=== PATIENT | female | born 1945 | race Caucasian/White ===

== ENCOUNTER → 2016-06-28 | Outpatient (CLI) | payer MEDICARE, BC ==
[~2016-06-28] MED LIST: ABILIFY2 MG PO; ABILIFY5 MG PO; ACCUPRIL10 MG PO; ACCUPRIL40MGTAB PO; AMBIEN 5MG TABLE5 MG PO; ASPIRIN 81M81 MG/TA2 PO; ASPIRIN E.C. 8181 MG PO; ATIVAN 0.50.5 MG/TAB PO; ATIVAN 1MG T1 MG/TAB PO; ATIVAN1 MG PO; BUPROPION PO; CALCIUM 500 W/V1 TAB PO; CALTRATE 600600 MG PO; CEPHALEXIN500 M1 PO; CIPRO 250MG TA250 MG PO; CORDARONE200 MG/TAB PO; DOXYCYCLINE 10100 MG PO; FISH OIL1000 MG PO; FLONASE NASAL S16 GM NS; FLOVENT0.044 MG/A IH; FLUTICASON0.05 MG/Ac NS; FOLIC ACID0.4 MG PO; FOLIC ACID800 MCG PO; GLUCOPHAGE500 MG PO; GLUCOPHAGE500 MG/TAB PO; HCTZ 25MG TAB25 MG PO; HCTZ 25MG25 MG PO; IBUPROFEN600 MG PO; INDERAL 80 MG PO; MACROBID 1100 MG/CAP PO; MAREPA1200 MG PO; METFORMIN500 MG PO; MULTIPLE VITAMI1 CAP PO; NORCO 325 MG-51 TAB PO; OMEPRAZOLE D/R20 MG PO; PRAVACHOL 20MG20 MG PO; PRAVACHOL 40MG40 MG PO; PRILOSEC 20MG20 MG PO; PROVIGIL100 MG PO; PROZAC 10MG10 MG PO; PROZAC 20MG20 MG PO; PROZAC10 MG PO; PROZAC20 MG PO; ROXICODONE 55 MG/TAB PO; TAMBOCOR50 MG PO; TEMOVATE0.05% TP; ULTRAM 50MG TAB50 MG PO; VENTOLIN0.09 MG IH; VERAPAMIL ER240 MG PO; VERELAN PM100 MG PO; VERELAN240 MG PO; VITAMIN D 1001000 IU PO; VITAMIN D1000 IU PO; WELLBUTRIN 100100 MG PO; WELLBUTRIN SR100 M1 PO; XARELTO15 MG PO; ZOFRAN 4MG T4 MG/TAB PO; ZOFRAN ODT4 MG PO; ZOLPIDEM TART5 MG PO
== END ==
LOC: MC.RAD 14:00
DX: Z12.31 Encounter for screening mammogram for malignant neoplasm of breast (principal); N63 Unspecified lump in breast

== ENCOUNTER → 2016-07-03 | Outpatient (CLI) | payer MEDICARE, BC | LOC: MC.RAD 08:52 | DX: D48.62 Neoplasm of uncertain behavior of left breast (principal) ==

== ENCOUNTER 2016-07-05 11:43 | Emergency (ER) | payer MEDICARE, BC ==
[~2016-07-05] VITALS: Ht 165.1 cm; Wt 136.4 kg
[~2016-07-05 11:43] MED LIST changes: -ATIVAN 1MG T1 MG/TAB PO; -CEPHALEXIN500 M1 PO; -VERELAN PM100 MG PO
[2016-07-05 11:44] VITALS: TEMP 99.1
[2016-07-05] MEDS ORDERED: ATIVAN 1MG T1 MG/TAB PO (12:15)
[2016-07-05] MEDS ORDERED: VERELAN PM100 MG PO (12:16)
[2016-07-05 13:13] LABS: ADJUSTED CALCIUM 9.8 mg/dL (8.4-10.2); ALBUMIN 4.3 gm/dL (3.5-5.0); BILIRUBIN,TOTAL 0.7 mg/dL (0.0-1.0); CREATININE, serum 1.3 mg/dL (0.52-1.25); POTASSIUM 4.8 mmol/L (3.4-5.0); TOTAL PROTEIN 7.5 gm/dL (6.4-8.2)
[2016-07-05 13:48] LABS: PH 5 (5-8); URINE APPEARANCE Clear; URINE BACTERIA None Seen /hpf; URINE BILIRUBIN Negative (NEGATIVE); URINE BLOOD Negative (NEGATIVE); URINE COLOR Yellow; URINE GLUCOSE Negative (NEGATIVE); URINE KETONE Negative (NEGATIVE); URINE UROBILINOGEN Negative (NEGATIVE)
[2016-07-05 14:25] LABS: BASO # 0.1 (0.0-0.2); BASO % 0.6 % (0.0-2.0); EOS # 0.2 (0.0-0.7); EOS % 2.5 % (0-4.0); GRAN # 5.7 (1.4-6.5); GRAN % 70.4 % (42.2-75.2); HEMATOCRIT 39.2 % (37.0-47.0); HEMOGLOBIN 12.5 g/dl (12.5-16.0); LYMPH # 1.6 (1.2-3.4); LYMPH % 19.9 % (20.0-51.0); MEAN CELL VOLUME 89 fl (80.0-100.0); MEAN CORPUSCULAR HEMOGLOBIN 29 pg (27.0-31.0); MEAN CORPUSCULAR HGB CONC 32 g/dl (33.0-37.0); MEAN PLATELET VOLUME 11.9 fl (7.4-10.4); MONO # 0.5 (0.1-0.6); MONO % 5.7 % (1.7-9.3); PLATELET COUNT 242 K/mm3 (130-400); RED BLOOD COUNT 4.39 M/mm3 (4.10-5.30); REDCELL DISTRIBUTION WIDTH-CV 15.9 % (11.5-14.5)
[2016-07-05 15:30] VITALS: BP 143/65; PULSE 69
[2016-07-05] MEDS ORDERED: CEPHALEXIN500 M1 PO (15:30)
== END 2016-07-05 15:36 | disposition home or self-care (01) ==
LOC: COL.ER 11:43
PROVIDERS: Emergency Medicine
DX: E86.0 Dehydration (principal); N39.0 Urinary tract infection, site not specified; Z95.0 Presence of cardiac pacemaker; E11.9 Type 2 diabetes mellitus without complications; I10 Essential (primary) hypertension; Z79.84 Long term (current) use of oral hypoglycemic drugs
CPT/HCPCS: J7030

== ENCOUNTER → 2016-11-15 | Outpatient (CLI) | payer MEDICARE, BC ==
[~2016-11-15] MED LIST changes: +ATIVAN 1MG T1 MG/TAB PO; +CEPHALEXIN500 M1 PO; +VERELAN PM100 MG PO
== END ==
LOC: BHSO 15:12
DX: F41.1 Generalized anxiety disorder (principal)

== ENCOUNTER → 2017-01-03 | Outpatient (CLI) | payer MEDICARE, BC | LOC: MC.RAD 13:01 | DX: N60.02 Solitary cyst of left breast (principal) ==

== ENCOUNTER 2017-02-04 13:00 | Emergency (ER) | payer MEDICARE, BC ==
[~2017-02-04] VITALS: Ht 165.1 cm; Wt 126.8 kg
[2017-02-04 13:49] LABS: BASO % 0.4 % (0.0-2.0); EOS # 0.1 (0.0-0.7); EOS % 1.5 % (0-4.0); GRAN # 5.7 (1.4-6.5); GRAN % 75.4 % (42.2-75.2); HEMATOCRIT 37.4 % (37.0-47.0); HEMOGLOBIN 12.2 g/dl (12.5-16.0); LYMPH # 1.3 (1.2-3.4); LYMPH % 16.9 % (20.0-51.0); MEAN CELL VOLUME 95 fl (80.0-100.0); MEAN CORPUSCULAR HEMOGLOBIN 31 pg (27.0-31.0); MEAN CORPUSCULAR HGB CONC 33 g/dl (33.0-37.0); MEAN PLATELET VOLUME 11.1 fl (7.4-10.4); MONO # 0.4 (0.1-0.6); MONO % 5.3 % (1.7-9.3); PLATELET COUNT 209 K/mm3 (130-400); RED BLOOD COUNT 3.95 M/mm3 (4.10-5.30); REDCELL DISTRIBUTION WIDTH-CV 14.9 % (11.5-14.5); WHITE BLOOD COUNT 7.6 K/mm3 (4.8-10.8)
[2017-02-04 13:52] LABS: INR 1.4 (0.8-3.0); PROTHROMBIN TIME 15.7 SECONDS (9.7-12.8)
[2017-02-04 13:56] LABS: ADJUSTED CALCIUM 9.7 mg/dL (8.4-10.2); ALBUMIN 4.3 gm/dL (3.5-5.0); BILIRUBIN,TOTAL 0.6 mg/dL (0.0-1.0); CALCIUM 9.9 mg/dL (8.4-10.2); CREATININE, serum 1.28 mg/dL (0.52-1.25); POTASSIUM 4.4 mmol/L (3.4-5.0); TOTAL PROTEIN 7.2 gm/dL (6.4-8.2)
[2017-02-04 14:12] VITALS: BP 138/75; PULSE 90; TEMP 99
== END 2017-02-04 14:35 | disposition home or self-care (01) ==
LOC: COL.ER 13:00
PROVIDERS: Physician Assistant
DX: S31.41XA Laceration without foreign body of vagina and vulva, initial encounter (principal); N93.9 Abnormal uterine and vaginal bleeding, unspecified; I10 Essential (primary) hypertension; E78.5 Hyperlipidemia, unspecified; E11.9 Type 2 diabetes mellitus without complications; E66.01 Morbid (severe) obesity due to excess calories; Z79.84 Long term (current) use of oral hypoglycemic drugs; Z68.42 Body mass index [BMI] 45.0-49.9, adult; X58.XXXA Exposure to other specified factors, initial encounter

== ENCOUNTER 2017-03-18 14:00 | Outpatient (RCR) | payer MEDICARE, BC | END 2017-05-12 | LOC: MKS.ESL.PT | DX: R29.898 Other symptoms and signs involving the musculoskeletal system (principal) | CPT/HCPCS: G8978-GP; G8979-GP ==

== ENCOUNTER → 2017-07-25 | Outpatient (CLI) | payer MEDICARE, BC | LOC: BHSO 10:16 | DX: F33.42 Major depressive disorder, recurrent, in full remission (principal) | CPT/HCPCS: G0463 ==

== ENCOUNTER → 2017-09-26 | Outpatient (CLI) | payer MEDICARE, BC | LOC: BHSO 10:40 | DX: F33.41 Major depressive disorder, recurrent, in partial remission (principal) | CPT/HCPCS: G0463 ==

== ENCOUNTER → 2017-12-05 | Outpatient (CLI) | payer MEDICARE, BC | LOC: BHSO 10:38 | DX: F33.41 Major depressive disorder, recurrent, in partial remission (principal) | CPT/HCPCS: G0463 ==

== ENCOUNTER 2018-01-11 18:27 | Emergency (ER) | payer MEDICARE, BC ==
[~2018-01-11] VITALS: Ht 165.1 cm; Wt 129.5 kg
[2018-01-11 18:29] VITALS: TEMP 99.7
[2018-01-11] MEDS ORDERED: WELLBUTRIN 100100 MG PO ×2 (19:05)
[2018-01-11] MEDS ORDERED: CALCIUM-500 5001 CTB PO (19:06)
[2018-01-11] MEDS ORDERED: VITAMIN D 1001000 IU PO (19:06)
[2018-01-11] MEDS ORDERED: TEMOVATE0.05% TP (19:07)
[2018-01-11] MEDS ORDERED: FLEXERIL 1010 MG/TAB PO (19:08)
[2018-01-11] MEDS ORDERED: PROZAC40 MG PO (19:09)
[2018-01-11] MEDS ORDERED: FOLIC ACID 40400 MCG PO (19:10)
[2018-01-11] MEDS ORDERED: ATIVAN 0.50.5 MG/TAB PO (19:11)
[2018-01-11] MEDS ORDERED: ATIVAN 1MG T1 MG/TAB PO (19:12)
[2018-01-11] MEDS ORDERED: XARELTO20 MG PO (19:13)
[2018-01-11] MEDS ORDERED: CARAFATE 1GM1 G PO (19:14)
[2018-01-11] MEDS ORDERED: VERELAN120 MG PO (19:15)
[2018-01-11] MEDS ORDERED: MASON NATURAL1200 MG PO (19:16)
[2018-01-11] MEDS ORDERED: NYAMYC100000 U/G TP (19:16)
[2018-01-11] MEDS ORDERED: NYSTATIN CREAM15 GM TP (19:17)
[2018-01-11 19:38] LABS: BASO % 0.5 % (0.0-2.0); EOS # 0.2 (0.0-0.7); EOS % 2.4 % (0-4.0); GRAN % 67.9 % (42.2-75.2); HEMATOCRIT 38.4 % (37.0-47.0); HEMOGLOBIN 12.5 g/dl (12.5-16.0); LYMPH # 1.6 (1.2-3.4); LYMPH % 22.1 % (20.0-51.0); MEAN CELL VOLUME 92 fl (80.0-100.0); MEAN CORPUSCULAR HEMOGLOBIN 30 pg (27.0-31.0); MEAN CORPUSCULAR HGB CONC 33 g/dl (33.0-37.0); MEAN PLATELET VOLUME 10.8 fl (7.4-10.4); MONO # 0.5 (0.1-0.6); MONO % 6.3 % (1.7-9.3); PLATELET COUNT 210 K/mm3 (130-400); RED BLOOD COUNT 4.17 M/mm3 (4.10-5.30); REDCELL DISTRIBUTION WIDTH-CV 15.2 % (11.5-14.5)
[2018-01-11 19:40] LABS: INR 1.3 (0.8-3.0); PROTHROMBIN TIME 14.5 SECONDS (9.7-12.8)
[2018-01-11 19:46] LABS: ALANINE AMINOTRANSFERASE 36 U/L (9-52); ALBUMIN 3.9 gm/dL (3.5-5.0); ALKALINE PHOSPHATASE 89 U/L (50-136); ANION GAP 14 mmol/L (7-16); AST,SGOT 44 U/L (15-37); BILIRUBIN,TOTAL 0.3 mg/dL (0.0-1.0); BLOOD UREA NITROGEN 23 mg/dL (7-17); CALCIUM 9.5 mg/dL (8.4-10.2); CARBON DIOXIDE 21 mmol/L (22-30); CHLORIDE 103 mmol/L (98-107); CREATININE, serum 1.39 mg/dL (0.52-1.25); GLUCOSE 169 mg/dL (74-106); POTASSIUM 3.8 mmol/L (3.4-5.0); SODIUM 138 mmol/L (137-145)
[2018-01-11 19:57] LABS: TROPONIN-I < 0.012 ng/mL (0.000-0.034)
[2018-01-11] MEDS ORDERED: LEVOXYL0.025 MG PO (20:22)
[2018-01-11] MEDS ORDERED: ANTIVERT 25MG25 MG PO (21:03)
[2018-01-11 21:43] VITALS: BP 124/76; PULSE 68
== END 2018-01-11 21:56 | disposition home or self-care (01) ==
LOC: COL.ER 18:27
PROVIDERS: Emergency Medicine
DX: R42 Dizziness and giddiness (principal); E11.9 Type 2 diabetes mellitus without complications; E78.5 Hyperlipidemia, unspecified; I10 Essential (primary) hypertension; E66.9 Obesity, unspecified; Z90.49 Acquired absence of other specified parts of digestive tract; Z90.89 Acquired absence of other organs; Z95.0 Presence of cardiac pacemaker; Z79.84 Long term (current) use of oral hypoglycemic drugs
CPT/HCPCS: J2405; J7040

== ENCOUNTER 2018-02-27 17:47 | Emergency (ER) | payer MEDICARE, BC ==
[~2018-02-27] VITALS: Ht 165.1 cm; Wt 131.8 kg
[~2018-02-27 17:47] MED LIST changes: +ANTIVERT 25MG25 MG PO; +CALCIUM-500 5001 CTB PO; +CARAFATE 1GM1 G PO; +FLEXERIL 1010 MG/TAB PO; +FOLIC ACID 40400 MCG PO; +LEVOXYL0.025 MG PO; +MASON NATURAL1200 MG PO; +NYAMYC100000 U/G TP; +NYSTATIN CREAM15 GM TP; +PROZAC40 MG PO; +VERELAN120 MG PO; +XARELTO20 MG PO
[2018-02-27 17:49] VITALS: TEMP 98.4
[2018-02-27 18:31] LABS: BASO # 0.1 (0.0-0.2); BASO % 0.7 % (0.0-2.0); EOS # 0.3 (0.0-0.7); EOS % 3.1 % (0-4.0); GRAN # 5.7 (1.4-6.5); GRAN % 68.4 % (42.2-75.2); HEMATOCRIT 39.5 % (37.0-47.0); LYMPH # 1.8 (1.2-3.4); LYMPH % 21.1 % (20.0-51.0); MEAN CELL VOLUME 93 fl (80.0-100.0); MEAN CORPUSCULAR HEMOGLOBIN 30 pg (27.0-31.0); MEAN CORPUSCULAR HGB CONC 33 g/dl (33.0-37.0); MEAN PLATELET VOLUME 10.7 fl (7.4-10.4); MONO # 0.5 (0.1-0.6); MONO % 6.1 % (1.7-9.3); PLATELET COUNT 236 K/mm3 (130-400); RED BLOOD COUNT 4.27 M/mm3 (4.10-5.30); REDCELL DISTRIBUTION WIDTH-CV 14.6 % (11.5-14.5)
[2018-02-27 18:42] LABS: ALANINE AMINOTRANSFERASE 44 U/L (9-52); ALBUMIN 4.1 gm/dL (3.5-5.0); ALKALINE PHOSPHATASE 73 U/L (50-136); ANION GAP 16 mmol/L (7-16); AST,SGOT 45 U/L (15-37); BILIRUBIN,TOTAL 0.4 mg/dL (0.0-1.0); BLOOD UREA NITROGEN 22 mg/dL (7-17); CALCIUM 9.6 mg/dL (8.4-10.2); CARBON DIOXIDE 21 mmol/L (22-30); CHLORIDE 103 mmol/L (98-107); CREATININE, serum 1.51 mg/dL (0.52-1.25); GLUCOSE 151 mg/dL (74-106); POTASSIUM 3.9 mmol/L (3.4-5.0); SODIUM 140 mmol/L (137-145); TOTAL PROTEIN 7.2 gm/dL (6.4-8.2)
[2018-02-27 18:55] LABS: TROPONIN-I < 0.012 ng/mL (0.000-0.034)
[2018-02-27 20:18] LABS: MAGNESIUM 1.8 mg/dL (1.6-2.3)
[2018-02-27 20:47] VITALS: BP 118/56; PULSE 73
[2018-02-27 20:49] LABS: THYROID STIMULATING HORMONE 2.79 uIU/mL (0.465-4.680)
== END 2018-02-27 20:55 | disposition home or self-care (01) ==
LOC: COL.ER 17:47
PROVIDERS: Emergency Medicine
DX: I49.1 Atrial premature depolarization (principal); I49.3 Ventricular premature depolarization; R07.89 Other chest pain; Z79.84 Long term (current) use of oral hypoglycemic drugs
CPT/HCPCS: J7030

== ENCOUNTER → 2018-03-05 | Outpatient (CLI) | payer MEDICARE, BC | LOC: BHSO 14:54 | DX: F41.1 Generalized anxiety disorder (principal) | CPT/HCPCS: G0463 ==

== ENCOUNTER 2018-05-16 08:39 | Emergency (ER) | payer MEDICARE, BC ==
[~2018-05-16] VITALS: Ht 165.1 cm; Wt 129.5 kg
[2018-05-16 08:44] VITALS: TEMP 98.8
[2018-05-16] MEDS ORDERED: LAMISIL250 M1 (09:56)
[2018-05-16] MEDS ORDERED: TRADJENTA5 MG PO (09:57)
[2018-05-16] MEDS ORDERED: OMNICEF 300MG300 MG PO (10:14)
[2018-05-16 10:35] VITALS: BP 129/97; PULSE 75
== END 2018-05-16 10:37 | disposition home or self-care (01) ==
LOC: COL.ER 08:39
DX: L03.90 Cellulitis, unspecified (principal); E11.8 Type 2 diabetes mellitus with unspecified complications; I10 Essential (primary) hypertension; Z79.84 Long term (current) use of oral hypoglycemic drugs
CPT/HCPCS: J0696

== ENCOUNTER → 2018-06-11 | Outpatient (CLI) | payer MEDICARE, BC ==
[~2018-06-11] MED LIST changes: +LAMISIL250 M1; +OMNICEF 300MG300 MG PO; +TRADJENTA5 MG PO
== END ==
LOC: BHSO 13:26
DX: F33.41 Major depressive disorder, recurrent, in partial remission (principal)
CPT/HCPCS: G0463

== ENCOUNTER 2018-07-26 13:51 | Emergency (ER) | payer MEDICARE, BC ==
[~2018-07-26] VITALS: Ht 165.1 cm; Wt 127.3 kg
[2018-07-26 13:54] VITALS: TEMP 98.1
[2018-07-26 16:06] VITALS: BP 145/61; PULSE 65
== END 2018-07-26 16:12 | disposition home or self-care (01) ==
LOC: COL.ER 13:51
DX: S51.012A Laceration without foreign body of left elbow, initial encounter (principal); S80.11XA Contusion of right lower leg, initial encounter; Z88.0 Allergy status to penicillin; Z88.2 Allergy status to sulfonamides; W08.XXXA Fall from other furniture, initial encounter; Y92.009 Unspecified place in unspecified non-institutional (private) residence as the place of occurrence of the external cause

== ENCOUNTER → 2018-09-09 | Outpatient (CLI) | payer MEDICARE, BC | LOC: BHSO 10:32 | DX: F33.42 Major depressive disorder, recurrent, in full remission (principal) | CPT/HCPCS: G0463 ==

== ENCOUNTER → 2018-11-26 | Outpatient (CLI) | payer MEDICARE, BC | LOC: COL.RAD 09:00 | DX: N18.3 Chronic kidney disease, stage 3 (moderate) (principal) ==

== ENCOUNTER → 2018-12-10 | Outpatient (CLI) | payer MEDICARE, BC | LOC: BHSO 09:48 | DX: F33.42 Major depressive disorder, recurrent, in full remission (principal) | CPT/HCPCS: G0463 ==

== ENCOUNTER 2019-05-06 11:24 | Emergency (ER) | payer MEDICARE, BC ==
[~2019-05-06] VITALS: Ht 162.6 cm; Wt 119.5 kg
[2019-05-06 11:31] VITALS: BP 134/62; TEMP 97.5
[2019-05-06 12:48] VITALS: PULSE 78
== END 2019-05-06 12:48 | disposition home or self-care (01) ==
LOC: COL.ER 11:24
DX: S81.011A Laceration without foreign body, right knee, initial encounter (principal); I10 Essential (primary) hypertension; E78.5 Hyperlipidemia, unspecified; E03.9 Hypothyroidism, unspecified; E11.9 Type 2 diabetes mellitus without complications; Z79.84 Long term (current) use of oral hypoglycemic drugs; X58.XXXA Exposure to other specified factors, initial encounter

== ENCOUNTER → 2019-07-23 | Outpatient (CLI) | payer MEDICARE, BC | LOC: BHSO 15:09 | DX: F33.41 Major depressive disorder, recurrent, in partial remission (principal) | CPT/HCPCS: G0463 ==

== ENCOUNTER 2020-01-20 14:03 | Inpatient (IN) | payer MEDICARE, BC ==
[~2020-01-20] VITALS: Ht 162.6 cm; Wt 123.1 kg
[2020-01-20] VITALS (7 sets, daily range): BP systolic 100–127; BP diastolic 34–59; PULSE 67–73; TEMP 98–98.3
--- NOTE | 2020-01-20 | NUR ---
Hospitalist was contacted at this time. Pt Hemoglobin was 6.6. She ordered a unit of blood. She also stated that if the pt H&H is below 7 she wants another unit of blood given at this time. Pt is currently lying in bed resting. Pt has was educated about her levels and what the doctor wanted to her to have. She also signed her consent at this time for her EGD scheduled for today at 100. air cargo ground crew supervisor was contacted and she knows about the doctor wanting her on the schedule at 100 and wants her scheduled with anesthesia. Pt has her call light within reach and her bed is in lowest position.
[2020-01-20 14:34] LABS: MEAN CELL VOLUME 105 fl (80.0-100.0); MEAN CORPUSCULAR HGB CONC 30 g/dl (33.0-37.0); MEAN PLATELET VOLUME 10.8 fl (7.4-10.4); PLATELET COUNT 281 K/mm3 (130-400); RED BLOOD COUNT 1.89 M/mm3 (4.10-5.30); REDCELL DISTRIBUTION WIDTH-CV 17.4 % (11.5-14.5)
[2020-01-20 14:40] LABS: ALBUMIN 3.5 gm/dL (3.5-5.0); BILIRUBIN,TOTAL 0.4 mg/dL (0.0-1.0); CREATININE, serum 1.57 (0.52-1.25); POTASSIUM 4.1 mmol/L (3.4-5.0); TOTAL PROTEIN 6.2 gm/dL (6.4-8.2)
[2020-01-20 14:42] LABS: COLLECTION METHOD CLEAN CATCH
[2020-01-20 14:49] LABS: PH 5 (5-8); SQUAMOUS EPITHELIAL 0-2 /hpf; URINE APPEARANCE Clear; URINE BACTERIA Rare /hpf; URINE BILIRUBIN Negative (NEGATIVE); URINE BLOOD Negative (NEGATIVE); URINE COLOR Yellow; URINE GLUCOSE Negative (NEGATIVE); URINE KETONE Negative (NEGATIVE); URINE LEUKOCYTE ESTERASE Negative (NEGATIVE); URINE NITRATE Negative (NEGATIVE); URINE PROTEIN(semi-quant) Negative (NEGATIVE); URINE RBC 0-2 /hpf; URINE UROBILINOGEN Negative (NEGATIVE); URINE WBC 0-2 /hpf
[2020-01-20 14:49] LABS: HEMATOCRIT 19.8 % (37.0-47.0); MEAN CORPUSCULAR HEMOGLOBIN 32 pg (27.0-31.0)
[2020-01-20 15:17] LABS: LYMPHOCYTE 20 % (20.0-51.0); METAMYELOCYTE 1 % (0-0); NEUTROPHILS 78 % (42.0-75.2)
[2020-01-20 15:18] LABS: PLATELET ESTIMATE NORMAL (NORMAL)
[2020-01-20 15:19] LABS: ANISOCYTOSIS 1+; HYPOCHROMIA 3+
[2020-01-20] MEDS ORDERED: ZYLOPRIM 100MG100 MG PO (17:50)
[2020-01-20] MEDS ORDERED: WELLBUTRIN XL300 M1 PO (17:51)
[2020-01-20] MEDS ORDERED: CALCIUM 600MG+D1 TAB PO (17:53)
[2020-01-20] MEDS ORDERED: TEMOVATE0.05% TP (17:53)
[2020-01-20] MEDS ORDERED: PROZAC 10MG10 MG PO (17:54)
[2020-01-20] MEDS ORDERED: PROZAC40 MG PO (17:55)
[2020-01-20] MEDS ORDERED: ATIVAN 1MG T1 MG/TAB PO (17:57)
[2020-01-20] MEDS ORDERED: BASAGLAR K100 UNIT/1 SQ (17:58)
[2020-01-20] MEDS ORDERED: FLONASE NASAL S16 GM NS (18:04)
--- NOTE | 2020-01-20 19:24 | NUR ---
Patient admitted to room 322.2 from the ER. Inital completed by IVAN CEDEÑO . Med rec completed, patient had home med list in her walker & she was able to verbalize last dose taken. 5 page completed. Patient unit of blood started. Blood protocol followed. Infusing via 20g to Rac. Started at 60ml/hr & patient tolerated, with nurse at bedside for the first 15 minutes. This is patient's first time receiving blood, we discussed signs & symptoms of transfusion reactions. Hospitalist team aware of patient admission. Scds ble. Patietn Npo at this time. Bedside report to Michell Rueda
--- NOTE | 2020-01-20 19:30 | NUR ---
Received report from CHIDI Javed. Pt has her call light within reach. Pt currently has blood transfusing at this time.
[2020-01-20 22:36] LABS: HEMATOCRIT 21.1 % (37.0-47.0); HEMOGLOBIN 6.6 g/dl (12.5-16.0)
[2020-01-21] VITALS (12 sets, daily range): BP systolic 102–136; BP diastolic 33–57; PULSE 45–78; TEMP 97.4–98.7
--- NOTE | 2020-01-21 | NUR ---
Hospitalist was contacted at this time. Pt hemoglobin was 6.6. Franny Martini hospitalist orderd a unit of blood. she also stated that if the pt H&H is drawn and she is below 7 she wants her to have anohter unit. Pt has been educated about her levels and what the doctor wanted her to have. She is currently lying in bed resting at this time. She also has signed her consent at this time for her EGD scheduled for today at 1100. supervisor byproducts was contacted and she knows about the doctor wanted her on the schedule at 1100 and wants her scheduled with anesthesia. Pt has her call light within reach and her bed is in lowest position.
--- NOTE | 2020-01-21 00:50 | NUR ---
Blood transfusing began at this time. Currently at pt bedside and pt is resting in bed at this time. Pt stated that she feels ok. No itiching or anthing abnoramal at this time. Will remain at pt beside. Transfusion is currently infusing at 60ml/hr.
[2020-01-21 05:06] LABS: HEMATOCRIT 23.2 % (37.0-47.0); HEMOGLOBIN 7.2 g/dl (12.5-16.0)
--- NOTE | 2020-01-21 05:07 | NUR ---
Pt hemoglobin was above 7. Pt level was 7.2. Hospitalist wanted her to have another unit if she was below 7. Pt is currently resting in bed and has her call light within reach.
[2020-01-21 05:10] LABS: INR 1.2 (0.8-3.0); PROTHROMBIN TIME 13.5 SECONDS (9.7-12.8)
[2020-01-21 05:36] LABS: CALCIUM 8.6 mg/dL (8.4-10.2); CREATININE, serum 1.4 (0.52-1.25)
[2020-01-21 07:04] LABS: HEMATOCRIT 24.8 % (37.0-47.0); HEMOGLOBIN 7.9 g/dl (12.5-16.0)
--- NOTE | 2020-01-21 11:08 | NUR ---
First visit from the regional account director. No needs right now.
--- NOTE | 2020-01-21 11:14 | NUR ---
LORENA met with the patient to discuss discharge plan. The patient lives alone in [place]. She states that she has good friend support in town. She reports independence with ADLs and has a walker. The patient's PCP is Dr. Irene Mcdowell and she receives her medications at [facility]. She reports no difficulties obtaining her meds. The patient does not have advanced directives in EMR, but she reports that she believes she has them completed and that Dr. Mcdowell may have a copy of them. She states that she would have designated her sister, Beth Tena (ph#[phone]). Beth lives in [place], [place]. LORENA attempted to contact Dr. Mcdowell's office to request a copy. LORENA left them a voicemail. The patient plans to return home upon discharge with a friend providing transport. The patient states that if she does not feel well after her EGD today, then she may be interested in home health. LORENA provided her with Medicare.gov's list of home health agencies that serve [place]. LORENA to continue to follow.
[2020-01-21 14:24] LABS: HEMOGLOBIN 7.7 g/dl (12.5-16.0)
[2020-01-21 17:14] LABS: FOLATE (FOLIC ACID) 17.9 ng/mL (7.0-31.4)
--- NOTE | 2020-01-21 18:00 | NUR ---
Patient has been doing well today. No bloody stools today. No complaints of pain or nausea. She had her EGD and they did not find a cause for the bleeding so she wll have a colonoscopy tomorrow. She is starting her bowel prep this evening. Expalined how she has to do the prep. No questions verbalized. No other changes today. Her HGB is stable. Patient is sitting up in the chair. Call light within reach.
--- NOTE | 2020-01-21 19:18 | NUR ---
Pt currently sitting up in bed talking on his cell phone. Pt has his call light within reach and his bed is in lowest position.
--- NOTE | 2020-01-21 20:16 | NUR ---
Pt sitting on the side of her bed drinking her bowel prep. Pt seems to be tolerating her prep well. Pt has been able to ambulate from her bed to the chair and evern the restroom. Pt has her call light within reach and her bed is in lowest position.
[2020-01-21 22:25] LABS: HEMATOCRIT 27.5 % (37.0-47.0); HEMOGLOBIN 8.6 g/dl (12.5-16.0)
--- NOTE | 2020-01-21 23:13 | NUR ---
Pt currently sitting up in bed. Pt has her call light within reach. Pt has finished her bowel prep. Pt has been using the bedside commode to make sure she is able to make it to the bathroom in time.
[2020-01-22] VITALS (11 sets, daily range): BP systolic 115–155; BP diastolic 42–65; PULSE 65–77; TEMP 97.3–98.2
[2020-01-22 07:13] LABS: CALCIUM 8.3 mg/dL (8.4-10.2); CREATININE, serum 1.3 (0.52-1.25); MAGNESIUM 1.8 mg/dL (1.6-2.3); POTASSIUM 3.5 mmol/L (3.4-5.0)
[2020-01-22 08:35] LABS: BASO % 0.4 % (0.0-2.0); EOS # 0.1 (0.0-0.7); EOS % 1.2 % (0-4.0); GRAN # 6.3 (1.4-6.5); GRAN % 76.2 % (42.2-75.2); LYMPH # 1.1 (1.2-3.4); LYMPH % 13.5 % (20.0-51.0); MEAN CORPUSCULAR HGB CONC 32 g/dl (33.0-37.0); MONO # 0.7 (0.1-0.6); PLATELET COUNT 249 K/mm3 (130-400); RED BLOOD COUNT 2.34 M/mm3 (4.10-5.30); REDCELL DISTRIBUTION WIDTH-CV 18.2 % (11.5-14.5)
[2020-01-22 08:38] LABS: HEMATOCRIT 22.7 % (37.0-47.0); HEMOGLOBIN 7.2 g/dl (12.5-16.0); MEAN CELL VOLUME 97 fl (80.0-100.0); MEAN CORPUSCULAR HEMOGLOBIN 31 pg (27.0-31.0)
--- NOTE | 2020-01-22 15:39 | NUR ---
Blood transfusion started, protocol followed. Explained to patient possible side affects of a reaction and explained to verbalize them right away. Transfusion started at 60mls an hour. Will increase rate after first 15mins. This nurse will stay in room for first 15.
--- NOTE | 2020-01-22 15:57 | NUR ---
Patient is resting comfortably. No reactions noted. Increased transfusion rate to 125ml an hour. Vital signs stable. No other changes at this time. Call light within reach.
--- NOTE | 2020-01-22 16:04 | NUR ---
Advice Clerk followed up with patient who still is unsure but feels she may need home health upon discharge. Patient is agreeable to having referral sent and would like to select [facility] as she has had them before. SW faxed referral and spoke with Mavis at [facility] who advised they can accept referral. LORENA will continue to follow.
--- NOTE | 2020-01-22 18:35 | NUR ---
Transfusion has finished. Patient tolerated well. She is not having anymore bloody stools. No complaints of nausea. Patient has been tolerating solid foods well. She was glad that her colonoscopy did not any other bleeding but is worried about restarting her blood thinners. She has been independent in the room and walks around well. No other changes at this time. Call light within reach.
--- NOTE | 2020-01-22 19:51 | NUR ---
Pt taking shower.
--- NOTE | 2020-01-22 21:00 | NUR ---
PT TAKES HS MEDS. DENIES PAIN. CPAP SET UP AND READY FOR PATIENT. INT TO LEFT FOREARM, FLUSHES WELL.
--- NOTE | 2020-01-23 02:52 | NUR ---
AWAKE, UP IN CHAIR AT BEDSIDE.
[2020-01-23 04:12] VITALS: BP 125/43; PULSE 68; TEMP 97.5
--- NOTE | 2020-01-23 06:12 | NUR ---
NO BM'S THIS SHIFT. UP AD MARCOS IN THE ROOM.
[2020-01-23 07:19] LABS: BASO % 0.4 % (0.0-2.0); EOS # 0.2 (0.0-0.7); EOS % 2.6 % (0-4.0); GRAN # 5.1 (1.4-6.5); GRAN % 73.6 % (42.2-75.2); LYMPH % 14.5 % (20.0-51.0); MEAN CELL VOLUME 98 fl (80.0-100.0); MEAN CORPUSCULAR HGB CONC 32 g/dl (33.0-37.0); MEAN PLATELET VOLUME 10.6 fl (7.4-10.4); MONO # 0.6 (0.1-0.6); MONO % 8.3 % (1.7-9.3); PLATELET COUNT 259 K/mm3 (130-400); RED BLOOD COUNT 2.64 M/mm3 (4.10-5.30); REDCELL DISTRIBUTION WIDTH-CV 17.2 % (11.5-14.5)
[2020-01-23 07:27] VITALS: BP 138/56; PULSE 75; TEMP 98.2
[2020-01-23 07:43] LABS: CALCIUM 8.5 mg/dL (8.4-10.2); CREATININE, serum 1.4 (0.52-1.25); POTASSIUM 3.4 mmol/L (3.4-5.0)
[2020-01-23 07:45] LABS: HEMATOCRIT 25.8 % (37.0-47.0); HEMOGLOBIN 8.2 g/dl (12.5-16.0); MEAN CORPUSCULAR HEMOGLOBIN 31 pg (27.0-31.0)
[2020-01-23 12:07] VITALS: BP 133/49; PULSE 77; TEMP 98.2
[2020-01-23 16:30] VITALS: BP 119/80; PULSE 75; TEMP 98.3
[2020-01-23 21:19] VITALS: BP 133/52; PULSE 80; TEMP 98.6
[2020-01-24] VITALS: BP 128/45; PULSE 67; TEMP 98.5
[2020-01-24 03:43] VITALS: BP 104/39; PULSE 61; TEMP 97.9
[2020-01-24 07:36] VITALS: BP 134/56; PULSE 72; TEMP 98.2
[2020-01-24 07:52] LABS: BASO % 0.5 % (0.0-2.0); EOS # 0.2 (0.0-0.7); EOS % 3.5 % (0-4.0); GRAN # 3.8 (1.4-6.5); GRAN % 67.7 % (42.2-75.2); LYMPH % 18.2 % (20.0-51.0); MEAN CELL VOLUME 99 fl (80.0-100.0); MEAN CORPUSCULAR HGB CONC 31 g/dl (33.0-37.0); MEAN PLATELET VOLUME 10.5 fl (7.4-10.4); MONO # 0.5 (0.1-0.6); MONO % 9.6 % (1.7-9.3); PLATELET COUNT 266 K/mm3 (130-400); RED BLOOD COUNT 2.81 M/mm3 (4.10-5.30); REDCELL DISTRIBUTION WIDTH-CV 16.6 % (11.5-14.5)
--- NOTE | 2020-01-24 08:00 | NUR ---
Patient resting in bedside recliner at this time. Patient is alert and oriented, answers questions appropriately. Patient is eating breakfast at this time and denies pain, nausea, or further needs. Call sanjeev christopher.
[2020-01-24 08:03] LABS: CREATININE, serum 1.37 (0.52-1.25); POTASSIUM 3.5 mmol/L (3.4-5.0)
[2020-01-24 08:04] LABS: HEMATOCRIT 27.7 % (37.0-47.0); HEMOGLOBIN 8.7 g/dl (12.5-16.0); MEAN CORPUSCULAR HEMOGLOBIN 31 pg (27.0-31.0)
[2020-01-24] MEDS ORDERED: NATURAL IRON65 MG PO (08:51)
[2020-01-24] MEDS ORDERED: ELIQUIS 2.5 PO (08:52)
--- NOTE | 2020-01-24 10:30 | NUR ---
Discharge teaching completed. Discussed discharge instructions, medicaitons, and activity modifications. Discussed NPO instructions after midnight tonight for REECE tomorrow. Discussed arrival time and procedure for REECE and need to arrange transportation home afterward. Patient questions asked and answered. INT removed from left wrist, catheter intact, hemostasis achieved. Patient assisted with dressing and escorted to ED entrance where she entered a private vehicle.
[2020-01-25] MEDS ORDERED: PRAVACHOL 40MG40 MG PO (09:36)
[2020-01-25] MEDS ORDERED: PLAVIX 75MG TAB75 MG PO (10:30)
[2020-01-25] MEDS ORDERED: ASPIRIN 81M81 MG/TA2 PO (10:30)
--- NOTE | 2020-01-25 13:07 | NUR ---
Contracts Paralegal was contacted by Eddie at [facility] requesting DC orders. LORENA faxed to fax#[phone].
--- NOTE | 2020-01-25 14:33 | NUR ---
plant maintenance worker secured home health orders and faxed to [facility]. Worker spoke to [facility]'s nurse, Lia and confirmed that they received orders and will see patient this date. Worker spoke with Justin, Nurse Data Center Consultant, at [facility] regarding the above information.
== END 2020-01-24 10:45 | disposition home or self-care (01) | DRG 813 ==
LOC: COL.ER 14:03 → SURG 15:17
PROVIDERS: Internal Medicine Gastroenterology; Nurse Practitioner Primary Care; Physician Assistant; ADMIT Internal Medicine
PROC: 0DBK8ZX Excision of Ascending Colon, Via Natural or Artificial Opening Endoscopic, Diagnostic (ICD-10-PCS; 2020-01-22)
PROC: 0DJ08ZZ Inspection of Upper Intestinal Tract, Via Natural or Artificial Opening Endoscopic (ICD-10-PCS; principal; 2020-01-22 11:30)
DX: D68.32 Hemorrhagic disorder due to extrinsic circulating anticoagulants (principal); D62 Acute posthemorrhagic anemia; K92.1 Melena; Z68.42 Body mass index [BMI] 45.0-49.9, adult; K57.30 Diverticulosis of large intestine without perforation or abscess without bleeding; T45.515A Adverse effect of anticoagulants, initial encounter; E11.22 Type 2 diabetes mellitus with diabetic chronic kidney disease; E03.9 Hypothyroidism, unspecified; N18.9 Chronic kidney disease, unspecified; F41.9 Anxiety disorder, unspecified; F32.9 Major depressive disorder, single episode, unspecified; I12.9 Hypertensive chronic kidney disease with stage 1 through stage 4 chronic kidney disease, or unspecified chronic kidney disease; G47.33 Obstructive sleep apnea (adult) (pediatric); I48.0 Paroxysmal atrial fibrillation; E66.01 Morbid (severe) obesity due to excess calories; Z95.0 Presence of cardiac pacemaker; Z79.01 Long term (current) use of anticoagulants; Z79.4 Long term (current) use of insulin; Z88.2 Allergy status to sulfonamides; Z88.0 Allergy status to penicillin
CPT/HCPCS: 99222-AI; 99231-AI; 99232-AI; 99239; C9113; J1815; J1940; J2704; J7030; P9016

== ENCOUNTER 2020-01-25 08:43 | Outpatient (CLI) | payer MEDICARE, BC ==
[~2020-01-25] VITALS: Ht 162.6 cm; Wt 122.4 kg
[~2020-01-25 08:43] MED LIST changes: +BASAGLAR K100 UNIT/1 SQ; +CALCIUM 600MG+D1 TAB PO; +ELIQUIS 2.5 PO; +NATURAL IRON65 MG PO; +WELLBUTRIN XL300 M1 PO; +ZYLOPRIM 100MG100 MG PO
[2020-01-25 08:55] VITALS: BP 162/79; PULSE 80; TEMP 97.5
[2020-01-25 09:27] LABS: MEAN CELL VOLUME 98 fl (80.0-100.0); MEAN CORPUSCULAR HGB CONC 31 g/dl (33.0-37.0); PLATELET COUNT 249 K/mm3 (130-400); RED BLOOD COUNT 2.78 M/mm3 (4.10-5.30); REDCELL DISTRIBUTION WIDTH-CV 15.9 % (11.5-14.5)
[2020-01-25 09:30] LABS: HEMATOCRIT 27.2 % (37.0-47.0); HEMOGLOBIN 8.4 g/dl (12.5-16.0); MEAN CORPUSCULAR HEMOGLOBIN 30 pg (27.0-31.0)
[2020-01-25 09:33] LABS: PROTHROMBIN TIME 11.4 SECONDS (9.7-12.8)
[2020-01-25] MEDS ORDERED: PRAVACHOL 40MG40 MG PO (09:36)
[2020-01-25 09:44] LABS: CREATININE, serum 1.39 (0.52-1.25); POTASSIUM 3.7 mmol/L (3.4-5.0)
[2020-01-25] MEDS ORDERED: PLAVIX 75MG TAB75 MG PO (10:30)
[2020-01-25] MEDS ORDERED: ASPIRIN 81M81 MG/TA2 PO (10:30)
[2020-01-25 10:45] VITALS: BP 126/70; PULSE 71
[2020-01-25 11:00] VITALS: BP 109/61; PULSE 71
[2020-01-25 11:15] VITALS: BP 123/55; PULSE 71
[2020-01-25 11:30] VITALS: BP 129/65; PULSE 71
--- NOTE | 2020-01-25 11:47 | NUR ---
Pt assisted out by wheelchair with belongings, to friend's car. All DC instructions reviewed and pt expresses understanding. VSS, tolerating ice chips without difficulty. INT removed with catheter intact.
== END 2020-01-25 11:47 | disposition home or self-care (01) ==
LOC: COL.RAD 08:43
PROVIDERS: Internal Medicine Cardiovascular Disease
DX: I08.3 Combined rheumatic disorders of mitral, aortic and tricuspid valves (principal); Z95.0 Presence of cardiac pacemaker; Z20.828 Contact with and (suspected) exposure to other viral communicable diseases

== ENCOUNTER → 2020-01-27 | Outpatient (CLI) | payer MEDICARE, BC ==
[~2020-01-27] MED LIST changes: +PLAVIX 75MG TAB75 MG PO
[2020-01-27 10:42] LABS: BASO % 0.4 % (0.0-2.0); EOS # 0.2 (0.0-0.7); EOS % 3.6 % (0-4.0); GRAN % 71.7 % (42.2-75.2); LYMPH # 0.9 (1.2-3.4); LYMPH % 15.4 % (20.0-51.0); MEAN CELL VOLUME 99 fl (80.0-100.0); MEAN CORPUSCULAR HGB CONC 30 g/dl (33.0-37.0); MEAN PLATELET VOLUME 10.3 fl (7.4-10.4); MONO # 0.5 (0.1-0.6); MONO % 8.4 % (1.7-9.3); PLATELET COUNT 233 K/mm3 (130-400); RED BLOOD COUNT 2.79 M/mm3 (4.10-5.30); REDCELL DISTRIBUTION WIDTH-CV 15.3 % (11.5-14.5)
[2020-01-27 10:43] LABS: HEMATOCRIT 27.5 % (37.0-47.0); HEMOGLOBIN 8.3 g/dl (12.5-16.0); MEAN CORPUSCULAR HEMOGLOBIN 30 pg (27.0-31.0)
== END ==
LOC: COL.LAB 09:45
DX: D64.9 Anemia, unspecified (principal)

== ENCOUNTER → 2020-03-23 | Outpatient (CLI) | payer MEDICARE, BC | LOC: BHSO 10:27 | DX: F33.41 Major depressive disorder, recurrent, in partial remission (principal) | CPT/HCPCS: G0463 ==

== ENCOUNTER 2020-11-10 09:55 | Inpatient (IN) | payer MEDICARE, BC ==
[~2020-11-10] VITALS: Ht 162.6 cm; Wt 122.3 kg
[2020-11-10 10:29] LABS: HEMATOCRIT 41.5 % (37.0-47.0); HEMOGLOBIN 13.5 g/dl (12.5-16.0); MEAN CELL VOLUME 99 fl (80.0-100.0); MEAN CORPUSCULAR HEMOGLOBIN 32 pg (27.0-31.0); MEAN CORPUSCULAR HGB CONC 33 g/dl (33.0-37.0); MEAN PLATELET VOLUME 9.9 fl (7.4-10.4); PLATELET COUNT 186 K/mm3 (130-400); REDCELL DISTRIBUTION WIDTH-CV 13.6 % (11.5-14.5)
[2020-11-10 10:33] LABS: COLLECTION METHOD CATHETER
[2020-11-10 10:39] LABS: ALBUMIN 3.8 gm/dL (3.5-5.0); BILIRUBIN,TOTAL 0.4 mg/dL (0.0-1.0); CALCIUM 9.3 mg/dL (8.4-10.2); CREATININE, serum 1.43 (0.52-1.25); TOTAL PROTEIN 6.8 gm/dL (6.4-8.2)
[2020-11-10 10:40] LABS: MUCOUS Present /lpf; PH 5 (5-8); SQUAMOUS EPITHELIAL 0-2 /hpf; URINE APPEARANCE Clear; URINE BACTERIA Rare /hpf; URINE BILIRUBIN Negative (NEGATIVE); URINE BLOOD Negative (NEGATIVE); URINE COLOR Yellow; URINE GLUCOSE Negative (NEGATIVE); URINE KETONE Negative (NEGATIVE); URINE LEUKOCYTE ESTERASE Negative (NEGATIVE); URINE NITRATE Negative (NEGATIVE); URINE PROTEIN(semi-quant) Negative (NEGATIVE); URINE RBC 0-2 /hpf; URINE UROBILINOGEN Negative (NEGATIVE)
[2020-11-10 10:51] LABS: INR 0.9 (0.8-3.0); PROTHROMBIN TIME 10.4 SECONDS (9.7-12.8)
[2020-11-10 10:52] LABS: TROPONIN-I 0.04 ng/mL (0.000-0.035)
[2020-11-10 10:54] LABS: PARTIAL THROMBOPLASTIN TIME 26.6 SECONDS (26.0-37.0)
[2020-11-10 11:01] LABS: EOSINOPHIL 1 % (0-4); METAMYELOCYTE 3 % (0-0); NEUTROPHILS 76 % (42.0-75.2); PLATELET ESTIMATE NORMAL (NORMAL)
[2020-11-10 11:05] LABS: LYMPHOCYTE 17 % (20.0-51.0)
[2020-11-10] MEDS ORDERED: ACCUPRIL40MGTAB PO (11:37)
[2020-11-10] MEDS ORDERED: LAMICTAL 25MG T25 MG PO (11:38)
[2020-11-10] MEDS ORDERED: DESYREL 50MG50 MG PO (11:38)
[2020-11-10 16:18] VITALS: BP 148/60; PULSE 83; TEMP 98.1
--- NOTE | 2020-11-10 17:02 | NUR ---
Admission assessment completed, alert/oriented, vital signs stable, denies pain, feeling better sence coming to ER, she is on room air, no resp.difficulty noted, lungs CTA, heart RRR/distal pulses are palpable, she is on heparin gtt at 22ml/hr (2200 units/hr), next HepXa @ 1930, meds/allergies/phrmacy reviewed, saw her in the ER , she denies needs, will continue to monitor
--- NOTE | 2020-11-10 18:21 | NUR ---
Report recieved from CHIDI Angel. Patient resting in bed at this time. Heparin drip running as ordered. Patient denies any pain, discomfort, or further needs at this time. Will continue to monitor. Call light in reach.
[2020-11-10 19:55] VITALS: BP 149/70; PULSE 96; TEMP 97.9
--- NOTE | 2020-11-10 20:13 | NUR ---
Heparin drip stopped at this time- will follow protocol
--- NOTE | 2020-11-10 21:00 | NUR ---
Initial shift assessment done- denies pain at this time- Heparin drip is off at this time-- repeat hepxa to be drawn at 2215 tonight. Blood sugar 182-- insulin given as ordered. Understands to call for assistance to get up to bathroom. Will let Rachel HENDERSON know about recent troponin0.097
--- NOTE | 2020-11-10 22:40 | NUR ---
Hep xa 1.05 so will keep heparin drip off for another 2 hours and recheck level per policy
[2020-11-10 22:45] LABS: PARTIAL THROMBOPLASTIN TIME 107.9 SECONDS (26.0-37.0)
[2020-11-10 23:40] VITALS: BP 103/36; PULSE 93; TEMP 98
[2020-11-11] VITALS (7 sets, daily range): BP systolic 110–139; BP diastolic 41–61; PULSE 77–91; TEMP 97.6–98.4
--- NOTE | 2020-11-11 01:15 | NUR ---
Hepxa back at 0.18, Heparin restarted at this time at 19cc/hr [1900 units/hr] per protocol. Respiratory was up earlier to put pt on CPAP- pt states cant tolerate the type of mask we have-- will have family bring in her own tomorrow. Patient sitting at edge of bed doing games on her phone. No requests.
--- NOTE | 2020-11-11 01:45 | NUR ---
Opal HENDERSON called to clarify heparin drip orders- order in system is dc,d? was just ordered x1 from ER doctor, heparin drip was restarted as earlier charted at 0115 at 19cc/hr. Opal HENDERSON will put in new order for heparin drip so it can be charted on.
--- NOTE | 2020-11-11 04:31 | NUR ---
Awake, sitting at edge of bed- states feels good today,, Denies SOB, o2 sats 91-93%RA-- pt called me to her room stating there was blood on her sheets- at bottom of bed-- did look at her feet and does have a small open blister on right heel that was bleeding--dry dressing applied . Also has briuse at top of coccyx and groin is red.
--- NOTE | 2020-11-11 05:25 | NUR ---
Has not slept much during the night- up in chair again at this time- tele on Paced. Denies any chest pain or SOB. on RA
--- NOTE | 2020-11-11 06:51 | NUR ---
Patient awake sitting up in chair at this time. Heparin gtt running at 19 ml/hr. Patient denies any pain, discomfort, or futher needs at this time. Will continue to monitor. Call light in reach.
[2020-11-11 07:13] LABS: HEMATOCRIT 43.9 % (37.0-47.0); HEMOGLOBIN 14.6 g/dl (12.5-16.0); MEAN CELL VOLUME 98 fl (80.0-100.0); MEAN CORPUSCULAR HEMOGLOBIN 33 pg (27.0-31.0); MEAN CORPUSCULAR HGB CONC 33 g/dl (33.0-37.0); MEAN PLATELET VOLUME 10.4 fl (7.4-10.4); PLATELET COUNT 203 K/mm3 (130-400); RED BLOOD COUNT 4.49 M/mm3 (4.10-5.30); REDCELL DISTRIBUTION WIDTH-CV 13.7 % (11.5-14.5)
[2020-11-11 07:21] LABS: CALCIUM 9.7 mg/dL (8.4-10.2); CREATININE, serum 1.4 (0.52-1.25); POTASSIUM 4.3 mmol/L (3.4-5.0)
[2020-11-11 07:47] LABS: TROPONIN-I 0.089 ng/mL (0.000-0.035)
[2020-11-11 08:01] LABS: BAND 4 % (0-10); EOSINOPHIL 3 % (0-4); LYMPHOCYTE 26 % (20.0-51.0); NEUTROPHILS 60 % (42.0-75.2); PLATELET ESTIMATE NORMAL (NORMAL)
--- NOTE | 2020-11-11 08:04 | NUR ---
Lab informed this RN that Troponin was 0.089. RUY Das notified.
--- NOTE | 2020-11-11 10:10 | NUR ---
Schedueld medication given. Patient stated that she has not taken Prozaac for a couple years. Talked with RUY Das, medication DC'd. Hep XA level came back as 0.93. Per protocol drip was stopped for one hour. Restarted at 200 units lower, putting it at 1700 units per hour. One time dose of coumadin given. Ultrasound of patient's leg completed. DVT's present in right leg. Patient denies any pain, discomfort, or SOA at this time. Will continue to monitor. Call light in reach.
--- NOTE | 2020-11-11 10:49 | NUR ---
Initial visit; Patient thanked for looking in on her and was pleased that remembered her from previous visits.
--- NOTE | 2020-11-11 14:19 | NUR ---
Rheologist met with the patient to complete intake. The patient lives alone in [place]. The patient ambulates with a walker and uses a CPAP. She receives CPAP supplies from [facility]. The patient reports independence with ADLs. The patient has had [facility] in the past. LORENA discussed home health services with the patient. She was agreeable to home health and would like to use [facility] once again. The patient does not have advanced directives in the EMR but states they are complete. The patient plan to return home with [facility]. The patient will have a transportation home from a friend. LORENA faxed referral. Eddie from [facility] reports they will be able to accept the patient for home health services. *Discharge disposition: Home with [facility]. PT/OT/Nursing services
--- NOTE | 2020-11-11 18:25 | NUR ---
Lab called a HEPXA level of 1.28 to this RN. Heparin gtt stopped per protocol. Hepxa scheduled for 1899. Patient given 6 units of insulin for a BS of 223. Patient has had no complaints of pain, discomfort, or SOA. Will continue to monitor. Call light in reach.
--- NOTE | 2020-11-11 22:57 | NUR ---
PT SITTING UP IN RECLINER, RIGHT HEEL DRESSING CHANGED, RIGHT LEG ELEVATED. NURSE INFORMED PT TO CALL FOR ANY ADDITIONAL NEEDS. CALL LIGHT WITHIN REACH.
--- NOTE | 2020-11-12 02:33 | NUR ---
PT IN BED, PT REPOSITIONED, RIGHT LEG REMAINS ELEVATED, CPAP NOT WORN. CALL LIGHT WITHIN REACH.
[2020-11-12 03:36] VITALS: BP 108/41; PULSE 83; TEMP 98.4
--- NOTE | 2020-11-12 05:16 | NUR ---
PT CALLED NURSE TO INFORM OF HER OF DISCOMFORT TO UNDER RIGHT BREAST. UPON ASSESMENT NURSE NOTICED A RED RASH, NURSE CALLED HOSPITALIST. NURSE ARABELLA VORB FOR DESONEX POWDER. NURSE WILL CLEAN SITE, DRY AND PLACE TOPICAL POWDER. CALL LIGHT WITHIN REACH.
--- NOTE | 2020-11-12 06:02 | NUR ---
PT A/OX4, PT REPOSITIONED, OFF BONY PROMINCENCE, RIGHT LEG ELEVATED. PT SLEPT ABOUT 3-4 HOURS OVERNIGHT. NURSE REMINDED PT TO WEAR CPAP 2X OVER NIGHT. PT REFUSED. PT EXPRESSES NO ADDITIONAL NEEDS AT THIS TIME. CALL LIGHT WITHIN REACH.
[2020-11-12 06:20] LABS: BASO % 0.5 % (0.0-2.0); EOS # 0.2 (0.0-0.7); EOS % 2.1 % (0-4.0); GRAN # 6.2 (1.4-6.5); GRAN % 73.4 % (42.2-75.2); HEMATOCRIT 38.3 % (37.0-47.0); LYMPH # 1.4 (1.2-3.4); LYMPH % 16.3 % (20.0-51.0); MEAN CELL VOLUME 98 fl (80.0-100.0); MEAN CORPUSCULAR HEMOGLOBIN 32 pg (27.0-31.0); MEAN CORPUSCULAR HGB CONC 33 g/dl (33.0-37.0); MEAN PLATELET VOLUME 10.4 fl (7.4-10.4); MONO # 0.5 (0.1-0.6); MONO % 6.2 % (1.7-9.3); PLATELET COUNT 178 K/mm3 (130-400); RED BLOOD COUNT 3.92 M/mm3 (4.10-5.30); REDCELL DISTRIBUTION WIDTH-CV 13.9 % (11.5-14.5)
[2020-11-12 06:22] LABS: HEMOGLOBIN 12.5 g/dl (12.5-16.0)
[2020-11-12 06:26] LABS: PROTHROMBIN TIME 10.7 SECONDS (9.7-12.8)
[2020-11-12 06:32] LABS: CREATININE, serum 1.38 (0.52-1.25); POTASSIUM 3.8 mmol/L (3.4-5.0)
[2020-11-12 08:05] VITALS: BP 112/38; PULSE 80; TEMP 97.9
[2020-11-12] MEDS ORDERED: LOVENOX120 MG/0.8 SQ (09:18)
[2020-11-12] MEDS ORDERED: COUMADIN 5MG5 MG/TAB PO (09:19)
[2020-11-12] MEDS ORDERED: OXYGEN NASAL.CANN (09:37)
--- NOTE | 2020-11-12 11:54 | NUR ---
Assessment completed, alert/oriented, vital signs stable, denies pain or discomfort, heart RRR, lungs CTA, RLE warm/swollen and tender in the calf, Lovenox demonstration give and then patient administered herself and did well, she will go home on Coumading with Lovenox bridge, she also had exercise ox and is requiring 2L. with exertion/ Social work getting patient set up with home o2 and arranging home health services as well, patient denies other nneeds at [facility]
--- NOTE | 2020-11-12 12:48 | NUR ---
F[facility]ed [facility] to work with client at home. SW setup and faxed O2 order to [facility] for 2 liters of 02 with ambulation. Nothing follows.
--- NOTE | 2020-11-12 16:13 | NUR ---
Discharge orders discussed with patient, instructed to follow up with PCP and have labs drawn as ordered, instructed to do Lovenox inj BID untill INR reaches 2-3, scripts for Lovenox and Coumadin sent to pharmacy for her, IV and tele removed, we escorted the patient out by wheelchair to her friends van
== END 2020-11-12 16:22 | disposition home or self-care (01) | DRG 176 ==
LOC: COL.ER 09:55 → MEDICAL 11:40
PROVIDERS: Emergency Medicine; Physician Assistant; ADMIT Student in an Organized Health Care Education/Training Program
DX: I26.99 Other pulmonary embolism without acute cor pulmonale (principal); I82.451 Acute embolism and thrombosis of right peroneal vein; I82.4Y1 Acute embolism and thrombosis of unspecified deep veins of right proximal lower extremity; E03.9 Hypothyroidism, unspecified; F41.9 Anxiety disorder, unspecified; E11.22 Type 2 diabetes mellitus with diabetic chronic kidney disease; E78.5 Hyperlipidemia, unspecified; N18.9 Chronic kidney disease, unspecified; I48.91 Unspecified atrial fibrillation; I12.9 Hypertensive chronic kidney disease with stage 1 through stage 4 chronic kidney disease, or unspecified chronic kidney disease; E66.01 Morbid (severe) obesity due to excess calories; R78.9 Finding of unspecified substance, not normally found in blood; Z79.82 Long term (current) use of aspirin; Z95.0 Presence of cardiac pacemaker
CPT/HCPCS: 99223-AI; 99233-AI; 99239; J0456; J0696; J1644; J1815; J7050; Q9967

== ENCOUNTER 2020-11-14 09:43 | Observation (INO) | payer MEDICARE, BC ==
[~2020-11-14] VITALS: Ht 162.6 cm; Wt 122.3 kg
[~2020-11-14 09:43] MED LIST changes: +COUMADIN 5MG5 MG/TAB PO; +DESYREL 50MG50 MG PO; +LAMICTAL 25MG T25 MG PO; +LOVENOX120 MG/0.8 SQ; +OXYGEN NASAL.CANN
[2020-11-14 10:32] LABS: HEMATOCRIT 39.9 % (37.0-47.0); HEMOGLOBIN 12.9 g/dl (12.5-16.0); MEAN CELL VOLUME 99 fl (80.0-100.0); MEAN CORPUSCULAR HEMOGLOBIN 32 pg (27.0-31.0); MEAN CORPUSCULAR HGB CONC 32 g/dl (33.0-37.0); MEAN PLATELET VOLUME 11.2 fl (7.4-10.4); PLATELET COUNT 198 K/mm3 (130-400); RED BLOOD COUNT 4.03 M/mm3 (4.10-5.30); REDCELL DISTRIBUTION WIDTH-CV 14.1 % (11.5-14.5)
[2020-11-14 10:38] LABS: INR 1.3 (0.8-3.0); PROTHROMBIN TIME 14.4 SECONDS (9.7-12.8)
[2020-11-14 11:11] LABS: ALBUMIN 2.5 gm/dL (3.5-5.0); BILIRUBIN,TOTAL 0.2 mg/dL (0.0-1.0); CALCIUM 6.8 mg/dL (8.4-10.2); CREATININE, serum 1.2 (0.52-1.25); POTASSIUM 3.2 mmol/L (3.4-5.0); TOTAL PROTEIN 4.9 gm/dL (6.4-8.2)
[2020-11-14 11:15] LABS: BAND 2 % (0-10); BASOPHIL 1 % (0-2); EOSINOPHIL 2 % (0-4); LYMPHOCYTE 17 % (20.0-51.0); METAMYELOCYTE 1 % (0-0); NEUTROPHILS 71 % (42.0-75.2); PLATELET ESTIMATE NORMAL (NORMAL)
[2020-11-14 12:28] VITALS: BP 118/56; PULSE 65; TEMP 98.1
--- NOTE | 2020-11-14 13:08 | NUR ---
LORENA recieved call from [facility] about patient being on thier schedule today. Educated patient status and we will send a fax for JUSTINO if/when patient is ready to dc and HHS is appropriate. STEVENSON.
--- NOTE | 2020-11-14 15:53 | NUR ---
HEPARIN NOT HUNG DUE TO LABS NOT BEING DRAWN YET. BROTH AND WATER BROUGHT TO PT. EDUCATED ON WHAT IS INCLUDED IN A CLD.
[2020-11-14 17:30] VITALS: BP 107/35; PULSE 73; TEMP 98.2
[2020-11-14 17:33] VITALS: BP 95/64
--- NOTE | 2020-11-14 17:33 | NUR ---
BP RECHECKED AT 95/64
[2020-11-14 17:37] LABS: HEMOGLOBIN 11.1 g/dl (12.5-16.0)
[2020-11-14 17:41] LABS: HEMATOCRIT 34.7 % (37.0-47.0)
--- NOTE | 2020-11-14 17:47 | NUR ---
PT HAS LOWER PRESSURE BUT DENIES DIZZIESS. VOLTAREN GEL APPLIED TO SORE JOINTS, PT PLEASANT, INSULIN REQUIRED BUT PT ALREADY AWHILE AGO. EDUCATED PT TO GET UP WITH ASSISTANCE AND TO NOTIFY STAFF IF PT HAS MORE TARRY/BLOODY STOOLS DUE TO HEPARIN DRIP.
[2020-11-14 17:56] LABS: PARTIAL THROMBOPLASTIN TIME 34.3 SECONDS (26.0-37.0)
--- NOTE | 2020-11-14 18:04 | NUR ---
CALLED PHARMACY ABOUT HIGH HEPXA. PHARMACIST JUST SAID TO FOLLOW PROTOCOL, HEPARIN STOPPED, WILL BE STOPPED FOR AN HOUR BEFORE RESTARTING AT A LOWER RATE.
--- NOTE | 2020-11-14 18:22 | NUR ---
PT REPORTS FEELING DIZZY AND LIGHTHEADED. BP REASSESSED AT 89/25. WILL REASSESS WITH MANUAL
[2020-11-14 18:28] VITALS: BP 102/72
--- NOTE | 2020-11-14 19:05 | NUR ---
heparin restarted at 20ml/hr
[2020-11-14 20:05] VITALS: BP 104/42; PULSE 67; TEMP 98.5
[2020-11-14 22:41] LABS: HEMOGLOBIN 10.2 g/dl (12.5-16.0)
[2020-11-14 22:46] LABS: HEMATOCRIT 31.7 % (37.0-47.0)
[2020-11-14 23:24] VITALS: BP 106/46; PULSE 70; TEMP 98.5
[2020-11-15] VITALS (13 sets, daily range): BP systolic 105–120; BP diastolic 33–59; PULSE 70–87; TEMP 97.7–99.5
--- NOTE | 2020-11-15 01:22 | NUR ---
PT LAYING IN BED, A/OX4, VSS, 02 NC 2L, C/O BACK PAIN RATES 4/10. TYLENOL ADMINISTERED ORDERED. PT REPOSITIONED. PT REMINDED OF NPO STATUS AFTER 0000, VERBALIZES UNDERSTANDING.PT REMINDED TO INFORM NURSE OF BM FOR NURSES EVALUATION PURPOSES. SNACK LEFT AT BEDSIDE. BED LOW. PT EXPRESSES NO ADDITIONAL NEEDS AT THIS TIME. CALL LIGHT WITHIN REACH.
--- NOTE | 2020-11-15 03:10 | NUR ---
PT HEP GTT STOPPED, HEPXA > 2.00. NEXT HEPXA DRAW AT 0500. NURSE INFORMED PT OF NEW LEVEL AND STATUS. PT CONFIRMS UNDERSTANDING. NURSE PLACED NEW MEPILEX ON PT RIGHT HEEL, PT EXPRESSES NO ADDITIONAL NEEDS AT THIS TIME. CALL LIGHT WITHIN REACH.
--- NOTE | 2020-11-15 04:57 | NUR ---
PT C/O OF LEFT HIP PAIN, RATES PAIN 6/10. TYLENOL ADMINSTERED ORDERED. PT REPOSITIONED. PILLOW PLACED UNDER LEFT HIP FOR COMFORT. PT EXPRESSES NO ADDITIONAL NEEDS AT THIS TIME. CALL LIGHT WITHIN REACH.
[2020-11-15 06:51] LABS: HEMATOCRIT 31.1 % (37.0-47.0); HEMOGLOBIN 9.9 g/dl (12.5-16.0)
[2020-11-15 06:59] LABS: PARTIAL THROMBOPLASTIN TIME 92.9 SECONDS (26.0-37.0)
[2020-11-15 07:03] LABS: CALCIUM 8.3 mg/dL (8.4-10.2); CREATININE, serum 1.34 (0.52-1.25); POTASSIUM 3.9 mmol/L (3.4-5.0)
--- NOTE | 2020-11-15 09:30 | NUR ---
PT ARRIVED BACK FROM IVC FILTER PLACEMENT. EDUCATED PT ON 1 HOUR FLAT TIME. L GROIN SITE SOFT TO PALPATION. VITALS OBTAINED, PT AOX4, ON RA, NO OTHER NEEDS
--- NOTE | 2020-11-15 10:56 | NUR ---
PT TAKEN DOWN BY BED WITH ENDO, PREOP FLUIDS HUNG FOR PT.
--- NOTE | 2020-11-15 11:55 | NUR ---
PT RETURNED FROM EGD. PT AOX4, DENIES PAIN AT THIS TIME. VITALS OBTAINED, NO OTHER NEEDS
--- NOTE | 2020-11-15 13:28 | NUR ---
Initial visit; Patient thanked Agricultural Equipment Sales Engineer for offering God's blessings and keeping her in double end tenoner setter's prayers.
[2020-11-15 14:17] LABS: HEMOGLOBIN 10.6 g/dl (12.5-16.0)
[2020-11-15 14:21] LABS: HEMATOCRIT 32.6 % (37.0-47.0)
--- NOTE | 2020-11-15 15:26 | NUR ---
LORENA met with the patient to discuss discharge plan and re-admit. The patient recently discharged from the hospital on 11/12 and returned home with [facility] for nursing home/PT/OT and was set up with home oxygen from [facility]. The patient states that she was talking to the home health RN on Saturday and they advised her to come to the ED, due to a GI bleed. The patient lives alone in [place]. She states that her family lives about 1 1/2 hours away in [place], but that she has good friend support in [place]. She reports independence with ADLs and has a walker and CPAP. The patient's PCP is Dr. Irene Mcdowell and she receives her medications from [facility]. She reports no difficulties obtaining her meds. The patient does not have a DPOA-HC in EMR, but she states that she does have one completed and that Dr. Mcdowell should have a copy of it. She states that her niece, Morelia Solares (ph#[phone]), is her DPOA-HC. Morelia lives in [place]. LORENA contacted Pamela at [facility] and requested a copy of the DPOA-HC. LORENA received a copy of the DPOA-HC and placed it in the patient's chart. The patient's DPOA-HC is Morelia. The patient plans to return home and resume services from [facility] upon discharge. An exercise oximetry was ordered today and RT notified LORENA that the patient did not qualify for oxygen. SW to notify [facility]. *Discharge plan: home with [facility]*
--- NOTE | 2020-11-15 17:03 | NUR ---
PT PLEASANT, AOX4, NO FINDINGS ON EGD, VITALS STABLE, PT EAGER FOR DISCHARGE, REPORTS GREATER PEACE OF MIND AFTER PROCEDURES. L GROIN SITE SOFT TO PALPATION WITH NO HEMATOMA PRESENT. NO OTHER NEEDS.
--- NOTE | 2020-11-16 01:14 | NUR ---
UPON DISCUSSION WITH PT, PT INFORMED NURSE SHE WAS FEELING VERY ANXIOUS AND WOULD LIKE TO TAKE ATIVAN SHE HAS IN THE PAST TO HELP RELIEVE HER ANXIETY. NURSE ADMINISTERED ATIVAN ORDERED. UPON F/U PT STATES SHE FEELS MUCH BETTER. PT REPOSITIONED, ALL BELONGINGS WITHIN REACH. CALL LIGHT WITHIN REACH.
[2020-11-16 04:23] VITALS: BP 122/56; PULSE 75; TEMP 98.2
[2020-11-16 06:39] LABS: MEAN CELL VOLUME 98 fl (80.0-100.0); MEAN CORPUSCULAR HGB CONC 33 g/dl (33.0-37.0); MEAN PLATELET VOLUME 10.5 fl (7.4-10.4); PLATELET COUNT 202 K/mm3 (130-400); RED BLOOD COUNT 3.07 M/mm3 (4.10-5.30); REDCELL DISTRIBUTION WIDTH-CV 14.4 % (11.5-14.5)
[2020-11-16 06:45] LABS: HEMATOCRIT 30.2 % (37.0-47.0); HEMOGLOBIN 9.9 g/dl (12.5-16.0); MEAN CORPUSCULAR HEMOGLOBIN 32 pg (27.0-31.0)
[2020-11-16 07:24] VITALS: BP 99/57; PULSE 81; TEMP 98.5
--- NOTE | 2020-11-16 07:35 | NUR ---
Patient lying awake in bed at this time. IVC sight on left groin is clean, dry, and intact. Patient denies any pain, discomfort, or further needs at this time. Will continue to monitor. Call light in reach.
[2020-11-16] MEDS ORDERED: PROTONIX 40MG T40 MG PO (09:47)
--- NOTE | 2020-11-16 09:59 | NUR ---
LORENA attended clinical rounds. The patient is to discharge back home today, 11/16, with home health services for longterm/PT/OT from [facility] . LORENA contacted and faxed d/c orders to Jesenia at [facility]. A repeat exercise oximetry was ordered and the patient did not qualify for oxygen. LORENA notified and faxed the results to Martita at [facility]. The patient states that a friend will transport her home. No additional needs at this time.
[2020-11-16 11:53] VITALS: BP 116/45; PULSE 62; TEMP 98.3
--- NOTE | 2020-11-16 13:23 | NUR ---
Scheduled medications given, assessments preformed. Right heel redressed. Patient C/O pain in her hips rated a 5/10, Voltaren gel applied, patient states that this has taken care of her pain. Insulin given as ordered. Patient being discharged home with home health. Patient discharge instruction/education given. All questions answered. Patient denies any further questions, concerns, or needs. VSS. IV DC'd catheter intact, no signs of phlebitis. Patient escorted from building by [facility] Staff via wheelchair.
== END 2020-11-16 13:28 | disposition home health service (06) ==
LOC: COL.ER 09:43 → MEDICAL 11:11
PROVIDERS: Family Medicine; Physician Assistant; ADMIT Student in an Organized Health Care Education/Training Program
DX: K92.1 Melena (principal); I82.401 Acute embolism and thrombosis of unspecified deep veins of right lower extremity; D50.0 Iron deficiency anemia secondary to blood loss (chronic); K44.9 Diaphragmatic hernia without obstruction or gangrene; K29.30 Chronic superficial gastritis without bleeding; I26.99 Other pulmonary embolism without acute cor pulmonale; I12.9 Hypertensive chronic kidney disease with stage 1 through stage 4 chronic kidney disease, or unspecified chronic kidney disease; N18.9 Chronic kidney disease, unspecified; E87.6 Hypokalemia; E87.2 Acidosis; J18.1 Lobar pneumonia, unspecified organism; I48.91 Unspecified atrial fibrillation; M10.9 Gout, unspecified; E03.9 Hypothyroidism, unspecified; G47.00 Insomnia, unspecified; E11.22 Type 2 diabetes mellitus with diabetic chronic kidney disease; E78.5 Hyperlipidemia, unspecified; F41.9 Anxiety disorder, unspecified; Z79.890 Hormone replacement therapy; Z79.4 Long term (current) use of insulin; Z90.49 Acquired absence of other specified parts of digestive tract; Z95.0 Presence of cardiac pacemaker; Z79.01 Long term (current) use of anticoagulants; Z79.899 Other long term (current) drug therapy; Z87.891 Personal history of nicotine dependence
CPT/HCPCS: C1769; C1880; C1894; C9113; G0378; J1644; J1815; J2250; J2405; J2704; J3010; J7030; J7120

== ENCOUNTER 2021-02-18 17:08 | Emergency (ER) | payer MEDICARE, BC ==
[~2021-02-18] VITALS: Ht 160 cm; Wt 124.1 kg
[~2021-02-18 17:08] MED LIST changes: +PROTONIX 40MG T40 MG PO
[2021-02-18 18:41] LABS: BASO % 0.4 % (0.0-2.0); EOS # 0.4 (0.0-0.7); EOS % 4.9 % (0-4.0); GRAN # 4.9 (1.4-6.5); HEMATOCRIT 37.8 % (37.0-47.0); HEMOGLOBIN 12.1 g/dl (12.5-16.0); LYMPH # 1.3 (1.2-3.4); LYMPH % 17.9 % (20.0-51.0); MEAN CELL VOLUME 99 fl (80.0-100.0); MEAN CORPUSCULAR HEMOGLOBIN 32 pg (27.0-31.0); MEAN CORPUSCULAR HGB CONC 32 g/dl (33.0-37.0); MEAN PLATELET VOLUME 10.5 fl (7.4-10.4); MONO # 0.5 (0.1-0.6); MONO % 7.2 % (1.7-9.3); PLATELET COUNT 172 K/mm3 (130-400); RED BLOOD COUNT 3.82 M/mm3 (4.10-5.30); REDCELL DISTRIBUTION WIDTH-CV 13.9 % (11.5-14.5)
[2021-02-18 18:49] LABS: PROTHROMBIN TIME 10.6 SECONDS (9.7-12.8)
[2021-02-18 18:52] LABS: PARTIAL THROMBOPLASTIN TIME 27.8 SECONDS (26.0-37.0)
[2021-02-18 18:54] LABS: ALANINE AMINOTRANSFERASE 18 U/L (4-34); ALKALINE PHOSPHATASE 71 U/L (50-136); ANION GAP 7 mmol/L (7-16); AST,SGOT 24 U/L (15-37); BILIRUBIN,TOTAL < 0.1 mg/dL (0.0-1.0); BLOOD UREA NITROGEN 30 mg/dL (7-17); CALCIUM 9.8 mg/dL (8.4-10.2); CARBON DIOXIDE 29 mmol/L (22-30); CHLORIDE 106 mmol/L (98-107); CREATININE, serum 1.48 (0.52-1.25); GLUCOSE 145 mg/dL (74-106); POTASSIUM 4.6 mmol/L (3.4-5.0); SODIUM 142 mmol/L (137-145); TOTAL PROTEIN 7.4 gm/dL (6.4-8.2)
[2021-02-18 19:06] LABS: TROPONIN-I < 0.012 ng/mL (0.000-0.035)
[2021-02-18 19:09] LABS: LIPASE 85 U/L (23-300)
[2021-02-18 19:52] LABS: TSH w REFLEX 2.007 uIU/mL (0.350-4.940)
[2021-02-18 22:25] VITALS: BP 133/66; PULSE 78; TEMP 98.4
== END 2021-02-18 22:25 | disposition home or self-care (01) ==
LOC: COL.ER 17:08
PROVIDERS: Student in an Organized Health Care Education/Training Program
DX: R69 Illness, unspecified (principal); I12.9 Hypertensive chronic kidney disease with stage 1 through stage 4 chronic kidney disease, or unspecified chronic kidney disease; E11.22 Type 2 diabetes mellitus with diabetic chronic kidney disease; N18.9 Chronic kidney disease, unspecified; E03.9 Hypothyroidism, unspecified; F41.9 Anxiety disorder, unspecified; M10.9 Gout, unspecified; G47.00 Insomnia, unspecified; Z79.890 Hormone replacement therapy; Z79.4 Long term (current) use of insulin; Z79.899 Other long term (current) drug therapy
CPT/HCPCS: J7040; Q9967

== ENCOUNTER 2021-06-05 08:42 | Emergency (ER) | payer MEDICARE, BC ==
[~2021-06-05] VITALS: Ht 160 cm; Wt 113.2 kg
[2021-06-05 08:48] VITALS: TEMP 98
[2021-06-05 09:40] LABS: HEMATOCRIT 37.6 % (37.0-47.0); HEMOGLOBIN 12.2 g/dl (12.5-16.0); MEAN CELL VOLUME 96 fl (80.0-100.0); MEAN CORPUSCULAR HEMOGLOBIN 31 pg (27.0-31.0); MEAN CORPUSCULAR HGB CONC 32 g/dl (33.0-37.0); MEAN PLATELET VOLUME 10.2 fl (7.4-10.4); PLATELET COUNT 187 K/mm3 (130-400); RED BLOOD COUNT 3.92 M/mm3 (4.10-5.30); REDCELL DISTRIBUTION WIDTH-CV 15.1 % (11.5-14.5)
[2021-06-05 09:49] LABS: ALBUMIN 3.2 gm/dL (3.4-4.8); BILIRUBIN,TOTAL 0.4 mg/dL (0.2-1.2); CALCIUM 9.5 mg/dL (8.4-10.2); CREATININE, serum 1.4 mg/dL (0.57-1.11); POTASSIUM 4.3 mmol/L (3.5-4.5); TOTAL PROTEIN 6.7 gm/dL (6.2-8.1)
[2021-06-05 09:54] LABS: TROPONIN-I 0.013 ng/mL (0.00-0.033)
[2021-06-05 10:39] LABS: BAND 2 % (0-10); EOSINOPHIL 3 % (0-4); LYMPHOCYTE 18 % (20.0-51.0); METAMYELOCYTE 1 % (0-0); NEUTROPHILS 75 % (42.0-75.2); PLATELET ESTIMATE NORMAL (NORMAL)
[2021-06-05 11:36] LABS: COLLECTION METHOD CATHETER
[2021-06-05 11:42] LABS: MUCOUS Present (NOT PRESENT); PH 5 (5-8); SQUAMOUS EPITHELIAL 0-2 /hpf (0-10); URINE APPEARANCE Clear (CLEAR/HAZY); URINE BACTERIA Rare (NONE SEEN); URINE BILIRUBIN Negative (NEGATIVE); URINE BLOOD Negative (NEGATIVE); URINE COLOR Yellow (YELLOW); URINE GLUCOSE Negative (NEGATIVE); URINE KETONE Negative (NEGATIVE); URINE LEUKOCYTE ESTERASE Negative (NEGATIVE); URINE NITRATE Negative (NEGATIVE); URINE PROTEIN(semi-quant) Negative (NEGATIVE); URINE RBC 0-2 /hpf (0-2); URINE UROBILINOGEN Negative (NEGATIVE)
[2021-06-05] MEDS ORDERED: DOXYCYCLINE HY100 MG PO (11:52)
[2021-06-05 13:33] VITALS: BP 152/73; PULSE 64
== END 2021-06-05 13:40 | disposition home or self-care (01) ==
LOC: COL.ER 08:42
PROVIDERS: Emergency Medicine
DX: R07.9 Chest pain, unspecified (principal); J34.89 Other specified disorders of nose and nasal sinuses; E03.9 Hypothyroidism, unspecified; F41.9 Anxiety disorder, unspecified; E78.5 Hyperlipidemia, unspecified; M10.9 Gout, unspecified; E11.22 Type 2 diabetes mellitus with diabetic chronic kidney disease; I12.9 Hypertensive chronic kidney disease with stage 1 through stage 4 chronic kidney disease, or unspecified chronic kidney disease; N18.9 Chronic kidney disease, unspecified; Z79.4 Long term (current) use of insulin; Z79.890 Hormone replacement therapy; Z79.899 Other long term (current) drug therapy
CPT/HCPCS: Q9967

== ENCOUNTER 2021-07-11 14:39 | Observation (INO) | payer MEDICARE, BC ==
[~2021-07-11] VITALS: Ht 160 cm; Wt 115.0 kg
[~2021-07-11 14:39] MED LIST changes: +DOXYCYCLINE HY100 MG PO
[2021-07-11 15:41] LABS: BASO # 0.1 K/mm3 (0.0-0.2); BASO % 0.9 % (0.0-2.0); EOS # 0.3 K/mm3 (0.0-0.7); EOS % 4.1 % (0.0-4.0); GRAN # 4.2 K/mm3 (1.4-6.5); GRAN % 64.1 % (42.2-75.2); LYMPH # 1.4 K/mm3 (1.2-3.4); LYMPH % 21.4 % (20.0-51.0); MEAN CELL VOLUME 97 fl (80.0-100.0); MEAN CORPUSCULAR HEMOGLOBIN 32 pg (27-31); MEAN CORPUSCULAR HGB CONC 33 g/dl (33.0-37.0); MEAN PLATELET VOLUME 10.3 fl (7.4-10.4); MONO # 0.6 K/mm3 (0.1-0.6); MONO % 8.4 % (1.7-9.3); PLATELET COUNT 164 K/mm3 (130-400); RED BLOOD COUNT 3.78 M/mm3 (4.10-5.30); REDCELL DISTRIBUTION WIDTH-CV 14.8 % (11.5-14.5)
[2021-07-11 15:45] LABS: HEMATOCRIT 36.8 % (37.0-47.0)
[2021-07-11 15:48] LABS: INR 0.9 (0.8-3.0); PROTHROMBIN TIME 10.3 SECONDS (9.7-12.8)
[2021-07-11 15:56] LABS: ALANINE AMINOTRANSFERASE 14 U/L (0-55); ALBUMIN 3.2 gm/dL (3.4-4.8); ALKALINE PHOSPHATASE 65 U/L (40-150); ANION GAP 11 mmol/L (7-16); AST,SGOT 17 U/L (5-34); BILIRUBIN,TOTAL 0.3 mg/dL (0.2-1.2); BLOOD UREA NITROGEN 27 mg/dL (10-20); CALCIUM 9.5 mg/dL (8.4-10.2); CARBON DIOXIDE 25 mmol/L (23-31); CHLORIDE 104 mmol/L (98-107); CREATINE KINASE 62 U/L (29-168); GLUCOSE 111 mg/dL (70-99); POTASSIUM 4.6 mmol/L (3.5-4.5); SODIUM 140 mmol/L (136-145); TOTAL PROTEIN 6.9 gm/dL (6.2-8.1)
[2021-07-11 16:08] LABS: TROPONIN-I < 0.010 ng/mL (0.00-0.033)
[2021-07-11 20:00] VITALS: BP 118/54; PULSE 59; TEMP 97.6
--- NOTE | 2021-07-11 20:20 | NUR ---
PT ARRIVES VIA W/C FROM ED. IS ALERT AND ORIENTED X4. HAS SL TO LEFT FOREARM, FLUSHES WELL. HAS WALKER AT BEDSIDE. DENIES CHEST PAIN, HAS NITRO PASTE TO RT UPPER CHEST. ADMISSION QUESTIONS COMPLETED. PT PROVIDED SANDWICH BOX.
[2021-07-11] MEDS ORDERED: ASPIRIN 81M81 MG/TA2 PO (21:28)
[2021-07-11] MEDS ORDERED: ESTRACE0.1 MG/GM VG (21:28)
[2021-07-11] MEDS ORDERED: MASON NATURAL1200 MG PO (21:34)
[2021-07-11] MEDS ORDERED: HCTZ 25MG TAB25 MG PO (21:35)
[2021-07-11] MEDS ORDERED: ACCUPRIL40MGTAB PO (21:40)
[2021-07-11] MEDS ORDERED: PROZAC 20MG20 MG PO (21:41)
[2021-07-11] MEDS ORDERED: VITAMIN D31000 IU PO (21:43)
[2021-07-11 23:32] VITALS: BP 108/48; PULSE 59; TEMP 97.8
[2021-07-12] VITALS (8 sets, daily range): BP systolic 91–166; BP diastolic 33–75; PULSE 59–77; TEMP 97.3–98
--- NOTE | 2021-07-12 06:00 | NUR ---
PT HAS RESTED WELL THIS SHIFT. KC=[id number].
[2021-07-12 06:04] LABS: BASO # 0.1 K/mm3 (0.0-0.2); BASO % 0.9 % (0.0-2.0); EOS # 0.3 K/mm3 (0.0-0.7); EOS % 5.1 % (0.0-4.0); GRAN % 62.6 % (42.2-75.2); HEMATOCRIT 37.8 % (37.0-47.0); HEMOGLOBIN 11.9 g/dl (12.5-16.0); LYMPH # 1.3 K/mm3 (1.2-3.4); LYMPH % 20.9 % (20.0-51.0); MEAN CELL VOLUME 98 fl (80.0-100.0); MEAN CORPUSCULAR HEMOGLOBIN 31 pg (27-31); MEAN CORPUSCULAR HGB CONC 32 g/dl (33.0-37.0); MEAN PLATELET VOLUME 10.4 fl (7.4-10.4); MONO # 0.6 K/mm3 (0.1-0.6); MONO % 9.2 % (1.7-9.3); PLATELET COUNT 168 K/mm3 (130-400); RED BLOOD COUNT 3.85 M/mm3 (4.10-5.30); REDCELL DISTRIBUTION WIDTH-CV 14.7 % (11.5-14.5)
[2021-07-12 06:22] LABS: CALCIUM 9.6 mg/dL (8.4-10.2); CREATININE, serum 1.44 mg/dL (0.57-1.11); MAGNESIUM 1.9 mg/dL (1.6-2.6); POTASSIUM 4.1 mmol/L (3.5-4.5)
[2021-07-12 06:44] LABS: THYROID STIMULATING HORMONE 3.894 uIU/mL (0.350-4.940); TROPONIN-I 0.016 ng/mL (0.00-0.033)
--- NOTE | 2021-07-12 08:00 | NUR ---
Pt has already had breakfast this am. She did eat bulgarian toast and eggs. Informed the pt of new order for nothing to eat or drink. Pt verbalized understanding.
--- NOTE | 2021-07-12 10:10 | NUR ---
Echo being done at this time
--- NOTE | 2021-07-12 10:15 | NUR ---
Talked with Dr Whittaker regarding pt having had a couple of sips of tea at [address] Whittaker states we may proceed with the exam.
--- NOTE | 2021-07-12 16:45 | NUR ---
Sealer Dry Cell met with patient to discuss discharge planning. Patient lives alone in [place] and sees Dr. Mcdowell for primary care. Patient obtains medications from [facility] with no difficulties. Patient uses a front wheeled walker for ambulation and reports independence with ADLS. Patient states she has completed DPOA-HC which designates her sister, Beth (ph#[phone]). Patient would like to get set up with [facility] upon discharge. SW contacted CHIDI Franks at [facility] and faxed referral and orders.
--- NOTE | 2021-07-12 17:04 | NUR ---
Reviewed discharge instructions with pt. Informed her that she will need to make a follow up appointment with Dr Mcdowell, I will fax information to her. INT removed from left wrist. Pt did receive a skin tear when the tape was removed. Covered with telfa pad and wrapped with coban. Notified telemetry and pt getting dressed. Informed pt to notify nursing when her ride arrives
== END 2021-07-12 17:28 | disposition home health service (06) ==
LOC: COL.ER 14:39 → SURG 17:09
PROVIDERS: Emergency Medicine; ADMIT Internal Medicine
DX: R07.89 Other chest pain (principal); R53.81 Other malaise; E11.40 Type 2 diabetes mellitus with diabetic neuropathy, unspecified; E11.22 Type 2 diabetes mellitus with diabetic chronic kidney disease; I12.9 Hypertensive chronic kidney disease with stage 1 through stage 4 chronic kidney disease, or unspecified chronic kidney disease; N18.30 Chronic kidney disease, stage 3 unspecified; E03.9 Hypothyroidism, unspecified; K44.9 Diaphragmatic hernia without obstruction or gangrene; Z20.822 Contact with and (suspected) exposure to COVID-19; I48.91 Unspecified atrial fibrillation; E78.5 Hyperlipidemia, unspecified; F41.9 Anxiety disorder, unspecified; F32.A Depression, unspecified; G47.33 Obstructive sleep apnea (adult) (pediatric); I49.5 Sick sinus syndrome; E66.01 Morbid (severe) obesity due to excess calories; Z68.41 Body mass index [BMI] 40.0-44.9, adult; Z87.891 Personal history of nicotine dependence; Z79.4 Long term (current) use of insulin; Z79.890 Hormone replacement therapy; Z79.82 Long term (current) use of aspirin; Z95.0 Presence of cardiac pacemaker; Z95.818 Presence of other cardiac implants and grafts; Z95.828 Presence of other vascular implants and grafts; Z79.899 Other long term (current) drug therapy; Z86.711 Personal history of pulmonary embolism
CPT/HCPCS: A9500; G0378; J1815; J2785

== ENCOUNTER 2021-12-11 11:27 | Emergency (ER) | payer MEDICARE, BC ==
[~2021-12-11] VITALS: Ht 160 cm; Wt 117.7 kg
[~2021-12-11 11:27] MED LIST changes: +ESTRACE0.1 MG/GM VG; +VITAMIN D31000 IU PO
[2021-12-11 11:29] VITALS: TEMP 98.6
[2021-12-11 11:54] LABS: HEMATOCRIT 38.7 % (37.0-47.0); HEMOGLOBIN 12.2 g/dl (12.5-16.0); MEAN CELL VOLUME 100 fl (80.0-100.0); MEAN CORPUSCULAR HEMOGLOBIN 32 pg (27-31); MEAN CORPUSCULAR HGB CONC 32 g/dl (33.0-37.0); MEAN PLATELET VOLUME 10.1 fl (7.4-10.4); PLATELET COUNT 211 K/mm3 (130-400); RED BLOOD COUNT 3.87 M/mm3 (4.10-5.30); REDCELL DISTRIBUTION WIDTH-CV 15.3 % (11.5-14.5)
[2021-12-11 12:08] LABS: ALANINE AMINOTRANSFERASE 20 U/L (0-55); ALBUMIN 3.4 gm/dL (3.4-4.8); ALKALINE PHOSPHATASE 59 U/L (40-150); ANION GAP 14 mmol/L (7-16); AST,SGOT 21 U/L (5-34); BILIRUBIN,TOTAL 0.4 mg/dL (0.2-1.2); BLOOD UREA NITROGEN 27 mg/dL (10-20); CALCIUM 10.2 mg/dL (8.4-10.2); CARBON DIOXIDE 25 mmol/L (23-31); CHLORIDE 104 mmol/L (98-107); GLUCOSE 140 mg/dL (70-99); POTASSIUM 4.6 mmol/L (3.5-4.5); SODIUM 143 mmol/L (136-145); TOTAL PROTEIN 7.6 gm/dL (6.2-8.1)
[2021-12-11 12:23] LABS: TROPONIN-I < 0.010 ng/mL (0.00-0.033)
[2021-12-11 12:27] LABS: BAND 2 % (0-10); EOSINOPHIL 2 % (0-4); LYMPHOCYTE 26 % (20.0-51.0); METAMYELOCYTE 2 % (0-0); NEUTROPHILS 60 % (42.0-75.2); PLATELET ESTIMATE NORMAL (NORMAL)
[2021-12-11 13:28] LABS: COLLECTION METHOD CLEAN CATCH
[2021-12-11 13:36] LABS: MUCOUS Present (NOT PRESENT); PH 6 (5-8); SQUAMOUS EPITHELIAL 0-2 /hpf (0-10); URINE APPEARANCE Clear (CLEAR/HAZY); URINE BACTERIA None Seen /hpf (NONE SEEN); URINE BILIRUBIN Negative (NEGATIVE); URINE BLOOD Negative (NEGATIVE); URINE COLOR Yellow (YELLOW); URINE GLUCOSE Negative (NEGATIVE); URINE KETONE Trace (NEGATIVE); URINE LEUKOCYTE ESTERASE Negative (NEGATIVE); URINE NITRATE Negative (NEGATIVE); URINE PROTEIN(semi-quant) Negative (NEGATIVE); URINE RBC 0-2 /hpf (0-2); URINE UROBILINOGEN Negative (NEGATIVE)
[2021-12-11 14:05] VITALS: BP 142/68; PULSE 60
== END 2021-12-11 15:30 | disposition home or self-care (01) ==
LOC: COL.ER 11:27
PROVIDERS: Emergency Medicine
DX: N28.9 Disorder of kidney and ureter, unspecified (principal); Z91.040 Latex allergy status

== ENCOUNTER 2022-02-08 11:42 | Observation (INO) | payer MEDICARE, BC ==
[~2022-02-08] VITALS: Ht 160 cm; Wt 124.0 kg
[2022-02-08 12:25] LABS: COLLECTION METHOD CLEAN CATCH
[2022-02-08 12:33] LABS: URINE COLOR Yellow (YELLOW)
[2022-02-08 12:34] LABS: PH 5.5 (5.0-8.5); URINE APPEARANCE Clear (CLEAR/HAZY); URINE BLOOD 1+ (NEGATIVE); URINE GLUCOSE Negative (NEGATIVE); URINE KETONE Negative (NEGATIVE); URINE NITRATE Negative (NEGATIVE); URINE PROTEIN(semi-quant) Negative (NEGATIVE); URINE UROBILINOGEN 0.2 E.U/dL (0.2-1.0)
[2022-02-08 12:35] LABS: MUCOUS Present (NOT PRESENT); SQUAMOUS EPITHELIAL 0-2 /hpf (0-10); URINE BACTERIA Rare /hpf (NONE SEEN)
[2022-02-08 12:37] LABS: BASO # 0.1 K/mm3 (0.0-0.2); BASO % 0.3 % (0.0-2.0); EOS % 0.1 % (0.0-4.0); GRAN # 14.6 K/mm3 (1.4-6.5); GRAN % 87.7 % (42.2-75.2); HEMOGLOBIN 13.3 g/dl (12.5-16.0); LYMPH # 1.1 K/mm3 (1.2-3.4); LYMPH % 6.8 % (20.0-51.0); MEAN CELL VOLUME 97 fl (80.0-100.0); MEAN CORPUSCULAR HEMOGLOBIN 31 pg (27-31); MEAN CORPUSCULAR HGB CONC 32 g/dl (33.0-37.0); MEAN PLATELET VOLUME 10.7 fl (7.4-10.4); MONO # 0.7 K/mm3 (0.1-0.6); MONO % 4.3 % (1.7-9.3); PLATELET COUNT 168 K/mm3 (130-400); RED BLOOD COUNT 4.25 M/mm3 (4.10-5.30); REDCELL DISTRIBUTION WIDTH-CV 14.9 % (11.5-14.5)
[2022-02-08 12:49] LABS: ALBUMIN 3.5 gm/dL (3.4-4.8); BILIRUBIN,TOTAL 0.6 mg/dL (0.2-1.2); CALCIUM 9.7 mg/dL (8.4-10.2); CREATININE, serum 1.81 mg/dL (0.57-1.11); POTASSIUM 4.5 mmol/L (3.5-4.5); TOTAL PROTEIN 7.2 gm/dL (6.2-8.1)
[2022-02-08 12:54] LABS: TROPONIN-I 0.021 ng/mL (0.00-0.033)
[2022-02-08 14:07] LABS: ARTERIAL BLD GAS TCO2 CT 24.5; ARTERIAL BLOOD GAS BASE EXCESS 0.3 (-2-2); ARTERIAL BLOOD GAS HCO3 23.5 meq/L (22-26); ARTERIAL BLOOD GAS PCO2 33.2 mmHg (35-45); ARTERIAL BLOOD GAS PO2 57.8 mmHg (80-100); ARTERIAL BLOOD GAS pH 7.47 (7.35-7.45)
[2022-02-08] MEDS ORDERED: LASIX 20MG TABL20 MG PO (15:18)
[2022-02-08 15:34] VITALS: BP 145/75; PULSE 79; TEMP 98.5
--- NOTE | 2022-02-08 19:20 | NUR ---
BEGINNING OF SHIFT NOTE: PAITENT RESTING QUIETLY. PATIENT ASSISTED UP TO BATHROOM. PATIENT DENIES PAIN AND IV IS INFUSING WITH NO DIFFICULTIES.
[2022-02-08 20:00] VITALS: BP 127/46; PULSE 73; TEMP 98.5
[2022-02-09] VITALS: BP 124/46; PULSE 76; TEMP 99
[2022-02-09 04:00] VITALS: BP 120/50; PULSE 59; TEMP 98.1
[2022-02-09 06:03] LABS: BASO % 0.3 % (0.0-2.0); EOS # 0.1 K/mm3 (0.0-0.7); EOS % 0.7 % (0.0-4.0); GRAN % 84.2 % (42.2-75.2); HEMATOCRIT 37.1 % (37.0-47.0); HEMOGLOBIN 12.2 g/dl (12.5-16.0); LYMPH # 0.9 K/mm3 (1.2-3.4); LYMPH % 8.5 % (20.0-51.0); MEAN CELL VOLUME 97 fl (80.0-100.0); MEAN CORPUSCULAR HEMOGLOBIN 32 pg (27-31); MEAN CORPUSCULAR HGB CONC 33 g/dl (33.0-37.0); MEAN PLATELET VOLUME 11.1 fl (7.4-10.4); MONO # 0.6 K/mm3 (0.1-0.6); MONO % 5.6 % (1.7-9.3); PLATELET COUNT 148 K/mm3 (130-400); RED BLOOD COUNT 3.84 M/mm3 (4.10-5.30); REDCELL DISTRIBUTION WIDTH-CV 14.9 % (11.5-14.5)
[2022-02-09 06:21] LABS: C-REACTIVE PROTEIN 14.76 mg/dL (0.00-0.50); CALCIUM 9.3 mg/dL (8.4-10.2); CREATININE, serum 1.5 mg/dL (0.57-1.11); MAGNESIUM 1.7 mg/dL (1.6-2.6); POTASSIUM 4.1 mmol/L (3.5-4.5)
--- NOTE | 2022-02-09 06:36 | NUR ---
END OF SHIFT NOTE: PATIENT AWAKE MOST OF THIS SHIFT. PATIENT DOZED ON AND OFF AND REPOSTIONED WITH ASSISTANCE SEVERAL TIMES TO AND FROM BED. PATIENT HAD COMPLAINTS OF NAUSEA AND BELCHED SEVERAL TIMES WITH SMALL AMOUNT OF EMESIS. PATIENT ALSO NEEDED TO BE PLACED ON 2L/NC OF OXYGEN FOR SATURATIONS 88-90% AND COMPLAINTS OF SHORTNESS OF BREATH. PATIENT REPORTED RESOLUTION OF SHORTNESS OF BREATH AFTER OXYGEN PLACED.
--- NOTE | 2022-02-09 08:00 | NUR ---
Patient is sitting up in the chair, alert and oriented x 4, VSS. Telemetry in place, paced, Receiving 1/2 NS at 75 ml/hr. No pain. Assessment completed, meds provided, no other needs at this time. Call light within reach.
[2022-02-09 08:02] VITALS: BP 123/49; PULSE 61; TEMP 98.3
--- NOTE | 2022-02-09 10:48 | NUR ---
Ewa: Сергей Situation: artificial candy maker stopped by room on rounds Background: Pt was resting and content Assessment: Pt has no needs right now, pt appreciated the visit Recommendation: Collector Of Aquarium Specimens will follow up as needed
[2022-02-09 12:00] VITALS: BP 120/48; PULSE 59; TEMP 98.1
--- NOTE | 2022-02-09 16:32 | NUR ---
wool batting worker met with patient to complete intake and discuss discharge plan. Patient reports that she lives at home alone in an apartment in [place]. She reports to being independent with her ADL's and does utilize a FWW to assist with ambulation. Patient does utilize a CPAP maching at night that is managed through [facility]. PCP is and she utilizes [facility] pharmacy for prescriptions. Patient reports that she does have a DPOA-HC established listing her sister Beth ([phone]) aand Beth's daughter. Patient would like to add her friend Laurie Sanches ([phone]) as an emergency contact. Patient's contact updated. Patient is established with [facility] for PT,OT and nursing services. Discharge plan: Home with [facility] (PT,OT,nursing)
[2022-02-09 16:34] VITALS: BP 121/50; PULSE 62; TEMP 98.3
--- NOTE | 2022-02-09 18:29 | NUR ---
Patient has been most of the day in the chair. She states she feels good and has been moving aroung with her walker. She asked to add ativan to her meds since she takes that to sleep, called [facility], it was ordered. Report will be given to night RN.
--- NOTE | 2022-02-09 19:47 | NUR ---
TX GIVEN VIA MOUTHPIECE, TOLERATED WELL.
[2022-02-09 20:55] VITALS: BP 127/60; PULSE 67; TEMP 98.4
[2022-02-10 00:10] VITALS: BP 109/52; PULSE 60; TEMP 98.6
[2022-02-10 04:11] VITALS: BP 97/49; PULSE 57; TEMP 98
--- NOTE | 2022-02-10 05:45 | NUR ---
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 PT RESTING IN HER RECLINER WATCHING TV. PT DENIED GENERAL PAIN, CHEST PAIN, PALPITATIONS, N,V,D, SOB OR DIZZINESS. PT REQUESTED ATIVAN TO HELP HER SLEEP. PT GIVEN ATIVAN AND OFFERED MELATONIN. PT ACCEPTED BOTH. BOTH WERE EFFECTIVE, PT SLEPT ALL NIGHT AND STATED SHE FELT WELL RESTED. PT EXPRESSED NO ADDITIONAL NEEDS AT THIS TIME. CALL LIGHT WITHIN REACH.
[2022-02-10 07:30] VITALS: BP 142/52; PULSE 70; TEMP 97.8
--- NOTE | 2022-02-10 08:00 | NUR ---
Patient sitting up in the recliner, A&Ox4. VSS. IV CDI. Denies pain and discomfort. Nurse encouraged the patient to elevate BLE to decrease swelling. Patient verbalized an understanding. Call light within reach
[2022-02-10] MEDS ORDERED: DOXYCYCLINE 10100 MG PO (10:49)
--- NOTE | 2022-02-10 11:47 | NUR ---
Discharge paperwork reviewed with the patient. Patient verbalized an understanding to follow doctors orders. Patient eating lunch and will wait for ride to return. Call light within reach
--- NOTE | 2022-02-10 12:02 | NUR ---
LORENA faxed over DC orders to [facility] at 11:37 am
--- NOTE | 2022-02-10 12:45 | NUR ---
Patient taken by wheelchair to awaiting car. No further needs expressed.
== END 2022-02-10 12:45 | disposition home health service (06) ==
LOC: COL.ER 11:42 → MEDICAL 13:56 → ICU 22:06 → MEDICAL 22:06
PROVIDERS: Family Medicine; ADMIT Internal Medicine
DX: J96.01 Acute respiratory failure with hypoxia (principal); R65.11 Systemic inflammatory response syndrome (SIRS) of non-infectious origin with acute organ dysfunction; R05.9 Cough, unspecified; R53.1 Weakness; R53.81 Other malaise; Z20.822 Contact with and (suspected) exposure to COVID-19; I12.9 Hypertensive chronic kidney disease with stage 1 through stage 4 chronic kidney disease, or unspecified chronic kidney disease; E11.22 Type 2 diabetes mellitus with diabetic chronic kidney disease; E11.65 Type 2 diabetes mellitus with hyperglycemia; N18.30 Chronic kidney disease, stage 3 unspecified; I08.3 Combined rheumatic disorders of mitral, aortic and tricuspid valves; K44.9 Diaphragmatic hernia without obstruction or gangrene; E03.9 Hypothyroidism, unspecified; F41.9 Anxiety disorder, unspecified; E78.5 Hyperlipidemia, unspecified; I48.91 Unspecified atrial fibrillation; Z95.818 Presence of other cardiac implants and grafts; Z79.4 Long term (current) use of insulin; Z86.711 Personal history of pulmonary embolism; Z95.828 Presence of other vascular implants and grafts; Z87.19 Personal history of other diseases of the digestive system; Z79.899 Other long term (current) drug therapy; Z79.82 Long term (current) use of aspirin; Z87.891 Personal history of nicotine dependence; Z79.890 Hormone replacement therapy
CPT/HCPCS: G0378; J0696; J1815; J7030

== ENCOUNTER 2022-02-17 04:11 | Observation (INO) | payer MEDICARE, BC ==
[~2022-02-17] VITALS: Ht 160 cm; Wt 121.9 kg
[~2022-02-17 04:11] MED LIST changes: +LASIX 20MG TABL20 MG PO
[2022-02-17 04:30] LABS: COLLECTION METHOD CLEAN CATCH
[2022-02-17 04:43] LABS: BASO # 0.1 K/mm3 (0.0-0.2); BASO % 0.5 % (0.0-2.0); EOS # 0.2 K/mm3 (0.0-0.7); EOS % 1.1 % (0.0-4.0); HEMATOCRIT 40.4 % (37.0-47.0); HEMOGLOBIN 12.9 g/dl (12.5-16.0); LYMPH # 1.1 K/mm3 (1.2-3.4); LYMPH % 6.1 % (20.0-51.0); MEAN CELL VOLUME 97 fl (80.0-100.0); MEAN CORPUSCULAR HEMOGLOBIN 31 pg (27-31); MEAN CORPUSCULAR HGB CONC 32 g/dl (33.0-37.0); MEAN PLATELET VOLUME 10.4 fl (7.4-10.4); MONO # 0.6 K/mm3 (0.1-0.6); MONO % 3.6 % (1.7-9.3); PLATELET COUNT 217 K/mm3 (130-400); RED BLOOD COUNT 4.17 M/mm3 (4.10-5.30); REDCELL DISTRIBUTION WIDTH-CV 14.7 % (11.5-14.5)
[2022-02-17 04:47] LABS: URINE APPEARANCE Clear (CLEAR/HAZY); URINE BLOOD Negative (NEGATIVE); URINE COLOR Yellow (YELLOW); URINE GLUCOSE Negative (NEGATIVE); URINE KETONE Negative (NEGATIVE); URINE NITRATE Negative (NEGATIVE); URINE PROTEIN(semi-quant) Negative (NEGATIVE); URINE UROBILINOGEN 0.2 E.U/dL (0.2-1.0)
[2022-02-17 04:54] LABS: ALBUMIN 3.5 gm/dL (3.4-4.8); BILIRUBIN,TOTAL 0.5 mg/dL (0.2-1.2); CREATININE, serum 1.66 mg/dL (0.57-1.11); POTASSIUM 4.6 mmol/L (3.5-4.5); TOTAL PROTEIN 7.5 gm/dL (6.2-8.1)
[2022-02-17 04:55] LABS: MUCOUS Present (NOT PRESENT); URINE BACTERIA None Seen /hpf (NONE SEEN); URINE WBC 0-2 /hpf (0-2)
[2022-02-17 04:59] LABS: TROPONIN-I 0.013 ng/mL (0.00-0.033)
[2022-02-17] MEDS ORDERED: ZITHROMAX 250M250 MG PO (07:11)
[2022-02-17] MEDS ORDERED: LASIX 20MG TABL20 MG PO (07:14)
[2022-02-17] MEDS ORDERED: HCTZ 25MG TAB25 MG PO (07:18)
[2022-02-17] MEDS ORDERED: WELLBUTRIN XL300 M1 PO (07:20)
[2022-02-17 10:00] VITALS: BP 154/62; PULSE 70; TEMP 97.3
[2022-02-17 11:27] VITALS: BP 131/58; PULSE 66; TEMP 98.1
[2022-02-17 16:04] VITALS: BP 134/50; PULSE 71; TEMP 98.9
[2022-02-17 18:17] VITALS: BP 148/64; PULSE 74
--- NOTE | 2022-02-17 18:30 | NUR ---
PT COMPLAINED TO AIDE ALIN ABOUT DIFFICULTY BREATHING. PT FOUND IN BED AND ANXIOUS. PT STATED HER "CHEST FELT HEAVY" AND THAT SHE FELT HER THROAT WAS FULL OF SPUTUM. VSS, O2 AT 97% ON 2LPM NC. A&OX3. LUNG SOUNDS CLEAR TO AUSCULTATION, THOUGH DIMINISHED IN THE BASES. HELPED PT TO SIT UP ON THE EDGE OF THE BED, AT WHICH TIME SHE SAID HER BREATHING STARTED TO BECOME EASIER. PRN ANXIETY MEDICINE GIVEN. PT BECAME LESS ANXIOUS AFTER TALKING FOR ABOUT 10 MINUTES. CALL LIGHT WITHIN REACH.
[2022-02-17 20:00] VITALS: BP 141/56; PULSE 78; TEMP 99.1
[2022-02-17 23:48] VITALS: BP 121/47; PULSE 65; TEMP 98
--- NOTE | 2022-02-18 04:00 | NUR ---
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 PT SITTING ON THE SIDE OF THE EATING HER DINNER. PT DENIED GENERAL PAIN, CHEST PAIN, PALPITATIONS, SOB, N,V,D OR DIZZINESS. PT HAD A PRETTY UNEVENTFUL NIGHT. PT EXPRESSED NO ADDITIONAL NEEDS AT THIS TIME. CALL LIGHT WITHIN REACH.
[2022-02-18 04:27] VITALS: BP 110/47; PULSE 63; TEMP 98.2
[2022-02-18 06:40] LABS: BASO % 0.2 % (0.0-2.0); EOS % 0.1 % (0.0-4.0); GRAN # 7.1 K/mm3 (1.4-6.5); GRAN % 86.1 % (42.2-75.2); HEMOGLOBIN 11.4 g/dl (12.5-16.0); LYMPH # 0.8 K/mm3 (1.2-3.4); LYMPH % 9.5 % (20.0-51.0); MEAN CELL VOLUME 97 fl (80.0-100.0); MEAN CORPUSCULAR HEMOGLOBIN 31 pg (27-31); MEAN CORPUSCULAR HGB CONC 32 g/dl (33.0-37.0); MEAN PLATELET VOLUME 10.7 fl (7.4-10.4); MONO # 0.2 K/mm3 (0.1-0.6); MONO % 2.7 % (1.7-9.3); PLATELET COUNT 180 K/mm3 (130-400); REDCELL DISTRIBUTION WIDTH-CV 14.7 % (11.5-14.5)
[2022-02-18 07:00] LABS: CALCIUM 9.8 mg/dL (8.4-10.2); CREATININE, serum 1.73 mg/dL (0.57-1.11); MAGNESIUM 1.8 mg/dL (1.6-2.6); POTASSIUM 4.2 mmol/L (3.5-4.5)
--- NOTE | 2022-02-18 08:00 | NUR ---
Patient sitting up in the recliner, A&Ox4. VSS 1L NC O2, no reported SOB. IV CDI. Denies pain and discomfort. Call light within reach. Nurse instructed the patient to elevate feet
[2022-02-18 09:03] VITALS: BP 126/66; PULSE 64; TEMP 98.1
[2022-02-18 11:40] VITALS: BP 150/54; PULSE 62; TEMP 98
--- NOTE | 2022-02-18 13:32 | NUR ---
SW met with pt to complete intake. Pt reports she lives alone in [place]. Her NK to contact is Laurie Robertson @ [phone]. Pt reports she is independent on all ADLs, drives and uses a walker, CPAP. Pcp is aldair Mcdowell, and gets medications from [facility]. Pt reports she is currently using [facility] and her CM is Beth for PTOT. Pt report she has reached out to them already and informed them that she was in the hospital. Pt has DPOA-HC in chart. Morelia Solares at [phone]. No other needs at this time. Sw to follow. LORENA faxed over updates to [facility] DC: Home W/[facility].
[2022-02-18 15:55] VITALS: BP 145/58; PULSE 69; TEMP 98
--- NOTE | 2022-02-18 18:06 | NUR ---
Patient had an uneventful day. A&Ox4. VSS 1L NC O2, no reported SOB. IV CDI. Denies pain and discomfort. Independent in the room. Call light within reach
[2022-02-18 19:25] VITALS: BP 141/56; PULSE 66; TEMP 98
[2022-02-18 23:20] VITALS: BP 142/54; PULSE 67; TEMP 98.2
[2022-02-19 03:54] VITALS: BP 122/44; PULSE 61; TEMP 97.7
--- NOTE | 2022-02-19 05:47 | NUR ---
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 PT RESTING IN BED TALKING TO FAMILY ON THE PHONE. PT DENIED GENERAL PAIN, CHEST PAIN, PALPITATIONS, N,V,D, SOB OR DIZZINESS. PT GIVEN A BED BATH AND SHOWER CAP HAIR WASH. PT STATED SHE FELT WONDERFUL AFTER THAT. PT DID HOWEVER HAD ONE LOW DIASTOLIC PRESSURE OF 44 AT HER 0400HR VS CHECK. HOSPITALIST INFORMED. WILL CONTINUE TO MONITOR. PT EXPRESSED NO ADDITIONAL NEEDS AT THIS TIME. CALL LIGHT WITHIN REACH.
[2022-02-19 06:32] LABS: BASO % 0.2 % (0.0-2.0); EOS % 0.5 % (0.0-4.0); GRAN # 6.8 K/mm3 (1.4-6.5); GRAN % 80.7 % (42.2-75.2); HEMOGLOBIN 11.2 g/dl (12.5-16.0); LYMPH # 1.1 K/mm3 (1.2-3.4); LYMPH % 12.7 % (20.0-51.0); MEAN CELL VOLUME 95 fl (80.0-100.0); MEAN CORPUSCULAR HEMOGLOBIN 31 pg (27-31); MEAN CORPUSCULAR HGB CONC 33 g/dl (33.0-37.0); MONO # 0.4 K/mm3 (0.1-0.6); MONO % 4.6 % (1.7-9.3); PLATELET COUNT 188 K/mm3 (130-400); REDCELL DISTRIBUTION WIDTH-CV 14.6 % (11.5-14.5)
[2022-02-19 06:39] LABS: HEMATOCRIT 34.3 % (37.0-47.0)
[2022-02-19 07:02] LABS: CALCIUM 9.6 mg/dL (8.4-10.2); CREATININE, serum 1.62 mg/dL (0.57-1.11); MAGNESIUM 2.1 mg/dL (1.6-2.6); POTASSIUM 3.9 mmol/L (3.5-4.5)
[2022-02-19 07:23] VITALS: BP 138/57; PULSE 59; TEMP 97.4
--- NOTE | 2022-02-19 08:30 | NUR ---
Patient is resting in bed, alert and oriented x 4, VSS. Using 1 L O2 NC. Telemetry in place, NSR. Patient is happy since the venous duplex came back negative. She just ate her breakfast. Now working with RT. Assessment completed, meds porvided. No other needs at this time. Call light within reach.
[2022-02-19] MEDS ORDERED: PEPCID 20MG TAB20 MG PO (09:34)
[2022-02-19] MEDS ORDERED: PREDNISONE20 MG PO (09:34)
[2022-02-19] MEDS ORDERED: RT ADVAIR HFA 1112 G IH (09:37)
[2022-02-19] MEDS ORDERED: OXYGEN NASAL.CANN (09:46)
--- NOTE | 2022-02-19 10:36 | NUR ---
Initial visit; Patient thanked Channeler Runner for looking in on her and offering God's blessings. Patient says she has received good news while she has been here and was receptive to having Channeler Runner keep her in her prayers. Channeler Runner suggested prayers of "thanksgiving" of which Tatianna was pleased.
[2022-02-19 12:24] VITALS: BP 136/54; PULSE 59; TEMP 97.7
--- NOTE | 2022-02-19 15:53 | NUR ---
Spreading Machine Operator attended clinical rounds with the team and patient to discharge home today with continued Home Health from [facility]. Home oxygen is also recommended. SW met with patient and although she is not very happy about needing home oxygen, she is agreeable to have SW order it and advised she would like it ordered through [facility] as she ordered through them before. LORENA contacted [facility] and faxed referral with order. LORENA confirmed it was received and that supplies would be delivered to patient's room. LORENA also contacted Eddie at [facility] and faxed discharge orders.
--- NOTE | 2022-02-19 17:00 | NUR ---
Discharge information was provided to pt, all questions answered. IV access and Telemetry were discontinued. Pt left room by wheelchair with staff.
== END 2022-02-19 17:40 | disposition home health service (06) ==
LOC: COL.ER 04:11 → MEDICAL 08:29
PROVIDERS: Emergency Medicine; ADMIT Hospitalist
DX: J96.01 Acute respiratory failure with hypoxia (principal); R79.1 Abnormal coagulation profile; D72.829 Elevated white blood cell count, unspecified; I48.91 Unspecified atrial fibrillation; E78.5 Hyperlipidemia, unspecified; I12.9 Hypertensive chronic kidney disease with stage 1 through stage 4 chronic kidney disease, or unspecified chronic kidney disease; E11.22 Type 2 diabetes mellitus with diabetic chronic kidney disease; N18.30 Chronic kidney disease, stage 3 unspecified; Z20.822 Contact with and (suspected) exposure to COVID-19; E03.9 Hypothyroidism, unspecified; F41.9 Anxiety disorder, unspecified; K44.9 Diaphragmatic hernia without obstruction or gangrene; J44.9 Chronic obstructive pulmonary disease, unspecified; G47.33 Obstructive sleep apnea (adult) (pediatric); Z86.711 Personal history of pulmonary embolism; Z79.4 Long term (current) use of insulin; Z86.718 Personal history of other venous thrombosis and embolism; Z95.0 Presence of cardiac pacemaker; Z79.890 Hormone replacement therapy; Z79.84 Long term (current) use of oral hypoglycemic drugs; Z79.899 Other long term (current) drug therapy; Z95.818 Presence of other cardiac implants and grafts; Z87.891 Personal history of nicotine dependence; Z87.19 Personal history of other diseases of the digestive system
CPT/HCPCS: G0378; J1644; J1815; J1940; J1956; J7512; Q9967

== ENCOUNTER 2023-07-26 09:18 | Emergency (ER) | payer MEDICARE, BC ==
[~2023-07-26] VITALS: Ht 160 cm; Wt 109.1 kg
[~2023-07-26 09:18] MED LIST changes: +ALLEGRA 180MG180 MG PO; +CALCIUM 600 PLU1 TAB PO; +HCTZ12.5TAB PO; +LASIX 40MG TABL40 MG PO; +NYSTATIN100000 U/1 TOP; +OXYGEN; +PEPCID 20MG TAB20 MG PO; +PREDNISONE20 MG PO; +PRISTIQ 50 MG T50 MG PO; +PROAIR HFA0.09 MG/AC IH; +RT ADVAIR HFA 1112 G IH; +ZITHROMAX 250M250 MG PO
[2023-07-26 09:22] VITALS: TEMP 98.3
[2023-07-26 10:35] LABS: HEMATOCRIT 39.3 % (37.0-47.0); HEMOGLOBIN 12.7 g/dl (12.5-16.0); MEAN CELL VOLUME 95 fl (80.0-100.0); MEAN CORPUSCULAR HEMOGLOBIN 31 pg (27-31); MEAN CORPUSCULAR HGB CONC 32 g/dl (33.0-37.0); MEAN PLATELET VOLUME 10.5 fl (7.4-10.4); PLATELET COUNT 248 K/mm3 (130-400); RED BLOOD COUNT 4.12 M/mm3 (4.10-5.30); REDCELL DISTRIBUTION WIDTH-CV 14.4 % (11.5-14.5)
[2023-07-26 10:48] LABS: ALBUMIN 2.8 gm/dL (3.4-4.8); BILIRUBIN,TOTAL 0.4 mg/dL (0.2-1.2); CALCIUM 10.2 mg/dL (8.4-10.2); CREATININE, serum 1.51 mg/dL (0.57-1.11); MAGNESIUM 1.7 mg/dL (1.6-2.6); POTASSIUM 4.3 mmol/L (3.5-4.5)
[2023-07-26 10:55] LABS: TROPONIN-I 0.031 ng/mL (0.00-0.033)
[2023-07-26] MEDS ORDERED: Iohexol 300 - 100 ML VIAL IV ONE (11:03)
[2023-07-26] MEDS ORDERED: NS 50 ML IV SCH (11:04)
[2023-07-26 11:08] LABS: EOSINOPHIL 3 % (0-4); HYPOCHROMIA 1+; LYMPHOCYTE 22 % (20.0-51.0); NEUTROPHILS 73 % (42.0-75.2); PLATELET ESTIMATE NORMAL (NORMAL)
[2023-07-26] MEDS ORDERED: PHARMASSURE ZIN50 MG PO (11:39)
[2023-07-26] MEDS ORDERED: OZEMPIC0.25 MG/02 SQ (11:40)
[2023-07-26 13:04] LABS: COLLECTION METHOD CLEAN CATCH
[2023-07-26 13:34] LABS: URINE APPEARANCE Clear (CLEAR/HAZY); URINE BLOOD Negative (NEGATIVE); URINE COLOR YELLOW (YELLOW); URINE GLUCOSE Negative (NEGATIVE); URINE KETONE Negative (NEGATIVE); URINE NITRATE Negative (NEGATIVE); URINE PROTEIN(semi-quant) 2+ (NEGATIVE); URINE UROBILINOGEN 0.2 E.U/dL (0.2-1.0)
[2023-07-26 13:35] LABS: SQUAMOUS EPITHELIAL 0-2 /hpf (0-10); URINE BACTERIA Rare /hpf (NONE SEEN)
[2023-07-26 14:05] VITALS: BP 141/72; PULSE 81
== END 2023-07-26 14:06 | disposition home or self-care (01) ==
LOC: COL.ER 09:18
PROVIDERS: Emergency Medicine
DX: R53.1 Weakness (principal); Z91.040 Latex allergy status
CPT/HCPCS: Q9967